=== PATIENT | male | born 1965 | race Caucasian/White ===

== ENCOUNTER 2021-01-03 12:49 | Inpatient (IN) | payer MEDICAID ==
[~2021-01-03] VITALS: Ht 182.9 cm; Wt 98.6 kg
[2021-01-04] VITALS (35 sets, daily range): BP systolic 82–125; BP diastolic 51–76
[2021-01-04] MEDS ORDERED: midazolam 1 mg/ML 2ml injection ONE (03:05)
[2021-01-04] MEDS ORDERED: acetaminophen 325mg tablet PO PRN ×4 (03:35→12:40)
[2021-01-04] MEDS ORDERED: potassium Cl 20 mEq SR tablet PO PRN ×4 (03:35→12:40)
[2021-01-04] MEDS ORDERED: LIDOcaine 2% 10ml TOPICAL JELLY (Urojet) TP ONE ×2 (03:35→12:40)
[2021-01-04] MEDS ORDERED: magnesium hydroxide 30ml (MOM) UD suspension PO PRN (03:35)
[2021-01-04] MEDS ORDERED: midazolam 1 mg/ML 2ml injection IV ONE ×3 (03:37→12:40)
[2021-01-04] MEDS ORDERED: NORepinephrine 8mg/ 250ml NS 250 ML IV ONE ×2 (03:40→13:32)
[2021-01-04] MEDS ORDERED: propofol 1000mg/100ml bottle 100 ML IV ONE (03:41)
[2021-01-04] MEDS ORDERED: CISatracurium besylate inj. 100 MG in normal saline 100ml IV soln 90 ML IV PRN (04:00)
[2021-01-04 04:26] LABS: ABG BASE EXCESS -7.6 mmol/L (-2.0-2.0); ABG HCO3 18.3 mmol/L (22.0-26.0); ABG OXYGEN SATURATION 99.1 % (94-97); ABG PCO2 (T) 38.8 mmHg (35.0-48.0); ABG PO2 (T) 195.4 mmHg (75.0-100.0); ALLEN'S TEST POSITIVE; FCOHb 0.1 % (0.0-3.9); FMetHb 0.2 % (0.0-1.5); FO2Hb 98.8 % (94-97); PEEP 10 cm H2O; RESPIRATORY RATE 26 b/min; TIDAL VOLUME 400 mL; TOTAL HEMOGLOBIN 13.8 G/dl (14.0-18.0)
[2021-01-04] MEDS: K, MAG and/or Phos replacement - Verify level? MC SCH ×2 (05:00→08:00)
[2021-01-04] MEDS: NORepinephrine 8mg/ 250ml NS 250 ML IV PRN ×2 (05:01→08:28)
[2021-01-04] MEDS: dexmedetomidin/NS 400mcg/100ml 100 ML IV SCH ×2 (05:02→15:02)
[2021-01-04] MEDS ORDERED: propofol 1000mg/100ml bottle 100 ML IV SCH (05:35)
--- NOTE | 2021-01-04 06:25 | NUR ---
[id number]: Patient here from [facility], accompanied by transport crew to room 2007. Patient tachypneic, agitated, face dusky. Versed bolus x2 given for sedation and ventilator synchrony. Dr. Mohamud here to see patient via telemed viewer, orders placed by MD. Titrating sedation for ventilator synchrony. Titrating pressors to maintain MAP greater than 65. Dodson catheter and OG tube placed. 0625: Problems reprioritized. Patient report given, questions answered & plan of care reviewed with Haylee YOST.
--- NOTE | 2021-01-04 06:30 | NUR ---
Patient in room CICU 2008. I have received report from Raven YOST and had the opportunity to ask questions and assume patient care.
--- NOTE | 2021-01-04 07:00 | NUR ---
Patients R ij central line is pulled out, patient was transferred to our hospital like this, Picc nurse on the unit called DR. Blum to get consent for an emergent picc line as patient has high dose Levophed running. Emergent Picc consent obtained
[2021-01-04] MEDS ORDERED: dexamethasone inj 6 MG in dextrose 5%-water 100 ML IV SCH (08:00)
[2021-01-04] MEDS ORDERED: famotidine 20mg tablet PO SCH (08:00)
[2021-01-04] MEDS ORDERED: enoxaparin 40mg/0.4ml syringe SUBCUT SCH (08:00)
[2021-01-04] MEDS: dexamethasone 4mg/ml inj IV SCH ×2 (08:27→20:58)
[2021-01-04] MEDS: FENTANYL-0.9 % NACL/PF 100 ML IV PRN ×4 (08:29→21:06)
[2021-01-04 08:32] LABS: BASOPHILS % (AUTO) 0.1 % (0-1); EOSINOPHILS % (AUTO) 0.1 % (0-6); HEMATOCRIT 44.8 % (42.0-52.0); HEMOGLOBIN 14.3 g/dl (14.0-17.9); LYMPHOCYTES # (AUTO) 0.8 X10'3 (1.1-4.8); LYMPHOCYTES % (AUTO) 4.5 % (21-51); MEAN CORPUSCULAR HEMOGLOBIN 29.1 PG (27.0-31.0); MEAN PLATELET VOLUME 7.3 FL (7.4-10.4); MONOCYTES % (AUTO) 5.5 % (2-12); NEUTROPHILS # (AUTO) 16.8 X10'3 (1.8-7.7); NEUTROPHILS % (AUTO) 89.8 % (42-75); PLATELET COUNT 268 X10'3 (140-440); RED BLOOD COUNT 4.92 X10'6 (4.70-6.10); RED CELL DISTRIBUTION WIDTH 16.9 % (11.5-14.5); WHITE BLOOD COUNT 18.7 X10'3 (4.5-11.0)
[2021-01-04 08:48] LABS: PARTIAL THROMBOPLASTIN TIME 28 SECONDS (22-32)
[2021-01-04 08:53] LABS: ALBUMIN 1.8 G/DL (3.4-5.0); ALBUMIN/GLOBULIN RATIO 0.4 (1.1-1.5); ALKALINE PHOSPHATASE 69 IU/L (46-116); ANION GAP 14 (8-16); BILIRUBIN,TOTAL 1.3 MG/DL (0.1-1.0); BLOOD UREA NITROGEN 29 MG/DL (7-18); BUN/CREATININE RATIO 14.2 (5.4-32.0); C-REACTIVE PROTEIN 21.67 MG/DL (0.0-0.5); CALCIUM 7.4 MG/DL (8.5-10.1); CHLORIDE 107 MMOL/L (99-107); CREATININE 2.04 MG/DL (0.60-1.10); GLUCOSE 145 MG/DL (70-104); MAGNESIUM 2.8 MG/DL (1.5-2.4); PHOSPHORUS 7.6 MG/DL (2.3-4.5); SODIUM 142 MMOL/L (135-145); TOTAL CARBON DIOXIDE 20.9 MMOL/L (24-32); TOTAL PROTEIN 6.3 G/DL (6.4-8.2); eGFR 34 ML/MIN
[2021-01-04 08:55] LABS: ALANINE AMINOTRANSFERASE 2312 U/L (12-78)
[2021-01-04 09:02] LABS: D-DIMER > 35.20 MG/L FEU (0-0.50)
[2021-01-04 09:14] LABS: ASPARTATE AMINO TRANSFERASE 3391 U/L (10-37)
[2021-01-04 09:49] LABS: ANISOCYTOSIS 1+; PLATELET ESTIMATE NORMAL; TOTAL CELLS COUNTED 100
[2021-01-04] MEDS: normal saline 1000ml 1,000 ML IV SCH ×3 (12:06→18:45)
[2021-01-04] MEDS ORDERED: BARICITINIB 2 MG TABLET PO SCH ×3 (12:07→15:05)
--- NOTE | 2021-01-04 12:14 | NUR ---
Initial: Pt admit for COVID-19 ARDS. Limited information at this time given new admit. Pt documented with an OG tube in place though no TF consult at this time. Current documented wt isn't scaled however unknown BMI at this time given no documented ht. Recommend TF to meet estimated nutrient needs if expected prolonged intubation, will need to know patient's height in order to make appropriate TF recommendations. Attempted TC to RN however RN unavailable. Will continue to follow closely and make recommendations as appropriate. Recommendations: 1) Initiate nutrition support if expected prolonged intubation, will need height; monitor Propofol rate when making recommendations 2) IF TF, additional 200 mL water flush Q4H 3) IF TF, prealbumin q Sunday/; daily scaled weights 4) Routine bowel care Addendum: 01/04/21 at [address] Amended: Links added.
[2021-01-04] MEDS: midazolam 100mg in NS 100ml 100 ML IV PRN ×2 (12:33→21:05)
[2021-01-04] MEDS ORDERED: azithromycin/NS 500mg/250ml 250 ML IV SCH ×2 (12:40→15:06)
[2021-01-04] MEDS ORDERED: ipratropium/albuterol 3ml nebule NEB PRN (12:40)
[2021-01-04] MEDS ORDERED: CefTRIAXone/D5W-Rocephin 1gm 50 ML IV SCH ×2 (12:40→15:07)
[2021-01-04] MEDS ORDERED: ondansetron/PF 4mg/2ml inj IV PRN (12:40)
[2021-01-04] MEDS ORDERED: potassium Cl 40MEQ/1/2NS 520ml 520 ML IV PRN ×2 (12:40)
[2021-01-04] MEDS ORDERED: potassium Cl 40MEQ/250ML bag 270 ML IV PRN ×2 (12:40)
[2021-01-04] MEDS ORDERED: fentaNYL/PF 50MCG/1 ML 2ML syringe IV PRN (12:40)
[2021-01-04] MEDS ORDERED: midazolam 100mg in NS 100ml 100 ML IV PRN (12:40)
[2021-01-04] MEDS ORDERED: UNABLE TO OBTAIN PO (12:41)
[2021-01-04] MEDS ORDERED: REMDESIVIR 100 MG in NS 100ml IVPB IV SCH (15:06)
[2021-01-04] MEDS: REMDESIVIR 100 MG in NS 100ml IVPB IV SCH (15:40)
[2021-01-04] MEDS: NORepinephrine inj. 32 MG in normal saline 250ml IV soln 218 ML IV SCH (15:41)
[2021-01-04] MEDS: ipratropium/albuterol 3ml nebule NEB SCH ×3 (15:54→23:36)
[2021-01-04] MEDS: BARICITINIB 2 MG TABLET PO SCH (16:18)
--- NOTE | 2021-01-04 17:41 | NUR ---
Patients niece called to verify that the patient does not have any home medication that she was able to find upon inspecting his house, she did state that he has a history of colitis and ulcers for which he has not seen a doctor in a long time for
--- NOTE | 2021-01-04 18:30 | NUR ---
Patient in room CICU 2007. I have received report from Haylee YOST and had the opportunity to ask questions and assume patient care.
--- NOTE | 2021-01-04 18:33 | NUR ---
Problems reprioritized. Patient report given, questions answered & plan of care reviewed with Jennifer YOST.
[2021-01-04] MEDS ORDERED: docusate sod 100mg capsule PO SCH (20:00)
[2021-01-04] MEDS: famotidine/PF 10 mg/ml inj IV SCH (20:58)
[2021-01-04] MEDS: sennosides/docusate sodium tablet PO SCH (20:59)
[2021-01-05] VITALS (43 sets, daily range): BP systolic 100–122; BP diastolic 58–73
[2021-01-05] MEDS: normal saline 1000ml 1,000 ML IV SCH ×4 (02:00→15:20)
[2021-01-05] MEDS: dexmedetomidin/NS 400mcg/100ml 100 ML IV SCH ×2 (02:07→13:16)
[2021-01-05] MEDS: ipratropium/albuterol 3ml nebule NEB SCH ×6 (02:44→23:21)
[2021-01-05 03:22] LABS: BASOPHILS % (AUTO) 0.1 % (0-1); EOSINOPHILS % (AUTO) 0.1 % (0-6); HEMOGLOBIN 12.1 g/dl (14.0-17.9); LYMPHOCYTES # (AUTO) 0.7 X10'3 (1.1-4.8); LYMPHOCYTES % (AUTO) 3.9 % (21-51); MEAN CORPUSCULAR HEMOGLOBIN 29.1 PG (27.0-31.0); MEAN CORPUSCULAR HGB CONC 32.7 g/dL (33.0-36.5); MEAN CORPUSCULAR VOLUME 89.1 FL (78-98); MEAN PLATELET VOLUME 7.9 FL (7.4-10.4); MONOCYTES # (AUTO) 0.8 X10'3 (0-0.9); MONOCYTES % (AUTO) 4.4 % (2-12); NEUTROPHILS # (AUTO) 17.6 X10'3 (1.8-7.7); NEUTROPHILS % (AUTO) 91.5 % (42-75); PLATELET COUNT 284 X10'3 (140-440); RED BLOOD COUNT 4.15 X10'6 (4.70-6.10); RED CELL DISTRIBUTION WIDTH 16.5 % (11.5-14.5); WHITE BLOOD COUNT 19.2 X10'3 (4.5-11.0)
[2021-01-05 03:44] LABS: D-DIMER 17.44 MG/L FEU (0-0.50)
[2021-01-05 03:47] LABS: ALBUMIN 1.6 G/DL (3.4-5.0); ALBUMIN/GLOBULIN RATIO 0.4 (1.1-1.5); ALKALINE PHOSPHATASE 86 IU/L (46-116); ANION GAP 16 (8-16); BLOOD UREA NITROGEN 50 MG/DL (7-18); BUN/CREATININE RATIO 16.8 (5.4-32.0); CALCIUM 6.6 MG/DL (8.5-10.1); CHLORIDE 109 MMOL/L (99-107); CREATININE 2.97 MG/DL (0.60-1.10); GLUCOSE 160 MG/DL (70-104); MAGNESIUM 2.7 MG/DL (1.5-2.4); PHOSPHORUS 6.5 MG/DL (2.3-4.5); POTASSIUM 5.4 MMOL/L (3.5-5.1); SODIUM 143 MMOL/L (135-145); TOTAL CARBON DIOXIDE 18.2 MMOL/L (24-32); TOTAL PROTEIN 5.5 G/DL (6.4-8.2); TRIGLYCERIDES 129 MG/DL (20-135); eGFR 22 ML/MIN
[2021-01-05 03:52] LABS: ALANINE AMINOTRANSFERASE 2135 U/L (12-78); C-REACTIVE PROTEIN 26.72 MG/DL (0.0-0.5)
[2021-01-05 03:53] LABS: ABG HCO3 15.6 mmol/L (22.0-26.0); ABG OXYGEN SATURATION 96.9 % (94-97); ABG PO2 (T) 111.2 mmHg (75.0-100.0); ALLEN'S TEST POSITIVE; FCOHb 0.3 % (0.0-3.9); FMetHb 0.3 % (0.0-1.5); FO2Hb 96.3 % (94-97); PEEP 10 cm H2O; RESPIRATORY RATE 26 b/min; TIDAL VOLUME 400 mL; TOTAL HEMOGLOBIN 12.8 G/dl (14.0-18.0)
[2021-01-05 04:13] LABS: ASPARTATE AMINO TRANSFERASE 2205 U/L (10-37)
--- NOTE | 2021-01-05 06:19 | NUR ---
Problems reprioritized. Patient report given, questions answered & plan of care reviewed with Shyanne YOST.
--- NOTE | 2021-01-05 06:30 | NUR ---
Patient in room CICU 2008. I have received report from travis and had the opportunity to ask questions and assume patient care.
[2021-01-05] MEDS: BARICITINIB 2 MG TABLET PO SCH (08:00)
[2021-01-05] MEDS: FENTANYL-0.9 % NACL/PF 100 ML IV PRN ×3 (09:09→21:48)
[2021-01-05] MEDS: midazolam 100mg in NS 100ml 100 ML IV PRN ×2 (09:10→21:48)
[2021-01-05] MEDS: enoxaparin 40mg/0.4ml syringe SUBCUT SCH (09:11)
[2021-01-05] MEDS: famotidine/PF 10 mg/ml inj IV SCH ×2 (09:12→21:47)
[2021-01-05] MEDS: dexamethasone 4mg/ml inj IV SCH ×2 (09:12→21:47)
[2021-01-05] MEDS: docusate sodium 100mg/10ml UD cup PO SCH ×2 (09:12→20:00)
[2021-01-05] MEDS ORDERED: glucagon, human recombinant 1mg kit SUBCUT PRN (09:40)
[2021-01-05] MEDS ORDERED: dextrose ORAL solution 15 GM/59 ML bottle PO PRN ×2 (09:40)
[2021-01-05] MEDS ORDERED: dextrose 50%-water 50ml dispensing syringe IV PRN ×2 (09:40)
[2021-01-05] MEDS: REMDESIVIR 100 MG in NS 100ml IVPB IV SCH (09:54)
[2021-01-05 10:25] LABS: TOTAL PROTEIN,URINE RANDOM 122.5 MG/DL
[2021-01-05 10:33] LABS: CLARITY,URINE TURBID (Clear); COLOR,URINE YELLOW (Yellow); GLUCOSE, URINE NEGATIVE (Neg); KETONES,URINE NEGATIVE (Neg); PROTEIN,URINE 30 mg/dl (Neg); UA COLLECTION TYPE FOLEY CATH
[2021-01-05 10:34] LABS: LEUKOCYTE ESTERASE ,URINE NEGATIVE (Neg); NITRITES, URINE NEGATIVE (Neg); OCCULT BLOOD,URINE LARGE (Neg); UROBILINOGEN,URINE 0.2 E.U/dL (0.2-1.0)
[2021-01-05 10:41] LABS: HEMOGLOBIN A1C 6.4 % (4.5-6.2)
[2021-01-05 10:50] LABS: BACTERIA,URINE FEW /HPF (Neg); RBC,URINE 0-2 /HPF (0-2); SQUAMOUS EPITHELIAL CELL,UR FEW /LPF (FEW); WBC,URINE 0-4 /HPF (0-4)
[2021-01-05 10:51] LABS: HYALINE CASTS 0-3 /LPF (NEGATIVE)
[2021-01-05 10:52] LABS: AMORPHOUS URATES 2+
[2021-01-05] MEDS: insulin Lispro (HumaLOG) vial - multi-dose SQ SCH ×2 (11:16→15:52)
[2021-01-05 12:13] LABS: UA EOSINOPHILS NO EOS /HPF
--- NOTE | 2021-01-05 13:49 | NUR ---
TF consult: Pt remains intubated and no longer receiving Propofol per EMR, to begin TF per MD. Patient's height was obtained and put in EMR, see below for estimated nutrient needs and TF recommendations. Noted pt with a low Jose D of 12, no edema or wounds per physical assessment. Will continue to follow closely and make recommendations as appropriate. Recommendations: 1) Continuous TF via OGT using Vital High Protein with 80 mL/hr goal to provide 1920 mL total volume/day, 1920 kcal, 168 g protein, and 1605 mL water; adjust as appropriate if Propofol is resumes 2) Additional 200 mL water flush Q4H; monitor serum Na 3) Prealbumin q Sunday/ 4) Daily scaled weights 5) Routine bowel care Addendum: 01/05/21 at [address] Amended: Links added.
[2021-01-05] MEDS: mineral oil/petrolatum ophthal oint EACHEYE SCH ×2 (14:00→20:00)
--- NOTE | 2021-01-05 14:00 | NUR ---
to ct and back to check chest. pt quite sedated, little response. on fent and versed. able to decrease levophed
[2021-01-05] MEDS: CefTRIAXone 2gm/D5W 50ml BAG 50 ML IV SCH (16:02)
--- NOTE | 2021-01-05 16:02 | NUR ---
Wound Care called and spoke to primary RN about low mony score alert. Per primary RN, patient's skin is intact and no skin concerns at this time.
[2021-01-05] MEDS: NORepinephrine inj. 32 MG in normal saline 250ml IV soln 218 ML IV SCH (16:04)
--- NOTE | 2021-01-05 17:14 | NUR ---
tf started as per orders. able to titrate down fio2 to 40%
[2021-01-05] MEDS: lactobacillus rhamnosus 10,000 MMU CELLS/CAPSULE PO SCH (21:46)
[2021-01-05] MEDS: sennosides/docusate sodium tablet PO SCH (21:46)
[2021-01-05] MEDS: insulin glargine (Lantus) pen - multi-dose SQ SCH (22:44)
[2021-01-06] VITALS (36 sets, daily range): BP systolic 101–122; BP diastolic 55–75
[2021-01-06] MEDS: dexmedetomidin/NS 400mcg/100ml 100 ML IV SCH ×3 (00:23→22:37)
[2021-01-06] MEDS: mineral oil/petrolatum ophthal oint EACHEYE SCH ×4 (02:00→20:00)
[2021-01-06] MEDS: ipratropium/albuterol 3ml nebule NEB SCH ×6 (02:49→23:00)
[2021-01-06 03:03] LABS: ABG BASE EXCESS -9.6 mmol/L (-2.0-2.0); ABG HCO3 17.8 mmol/L (22.0-26.0); ABG PCO2 (T) 46.1 mmHg (35.0-48.0); ABG PO2 (T) 77.9 mmHg (75.0-100.0); ALLEN'S TEST POSITIVE; FCOHb 0.3 % (0.0-3.9); FMetHb 0.2 % (0.0-1.5); FO2Hb 91.5 % (94-97); PATIENT TEMPERATURE 37.7; PEEP 10 cm H2O; RESPIRATORY RATE 26 b/min; TIDAL VOLUME 400 mL; TOTAL HEMOGLOBIN 12.5 G/dl (14.0-18.0)
[2021-01-06 03:33] LABS: BASOPHILS % (AUTO) 0.1 % (0-1); EOSINOPHILS # (AUTO) 0.1 X10'3 (0-0.9); EOSINOPHILS % (AUTO) 0.3 % (0-6); HEMATOCRIT 34.3 % (42.0-52.0); LYMPHOCYTES # (AUTO) 0.6 X10'3 (1.1-4.8); LYMPHOCYTES % (AUTO) 3.2 % (21-51); MEAN CORPUSCULAR HEMOGLOBIN 28.7 PG (27.0-31.0); MEAN CORPUSCULAR HGB CONC 32.1 g/dL (33.0-36.5); MEAN CORPUSCULAR VOLUME 89.4 FL (78-98); MEAN PLATELET VOLUME 7.5 FL (7.4-10.4); MONOCYTES # (AUTO) 0.8 X10'3 (0-0.9); MONOCYTES % (AUTO) 3.9 % (2-12); NEUTROPHILS # (AUTO) 18.5 X10'3 (1.8-7.7); NEUTROPHILS % (AUTO) 92.5 % (42-75); PLATELET COUNT 284 X10'3 (140-440); RED BLOOD COUNT 3.84 X10'6 (4.70-6.10); RED CELL DISTRIBUTION WIDTH 16.9 % (11.5-14.5)
[2021-01-06 03:57] LABS: ALBUMIN 1.6 G/DL (3.4-5.0); ALBUMIN/GLOBULIN RATIO 0.4 (1.1-1.5); ALKALINE PHOSPHATASE 133 IU/L (46-116); ANION GAP 13 (8-16); ASPARTATE AMINO TRANSFERASE 628 U/L (10-37); BILIRUBIN,TOTAL 1.2 MG/DL (0.1-1.0); BLOOD UREA NITROGEN 82 MG/DL (7-18); BUN/CREATININE RATIO 20.6 (5.4-32.0); C-REACTIVE PROTEIN 21.72 MG/DL (0.0-0.5); CALCIUM 7.2 MG/DL (8.5-10.1); CHLORIDE 112 MMOL/L (99-107); CREATININE 3.99 MG/DL (0.60-1.10); GLUCOSE 211 MG/DL (70-104); MAGNESIUM 3.3 MG/DL (1.5-2.4); PHOSPHORUS 6.1 MG/DL (2.3-4.5); POTASSIUM 5.4 MMOL/L (3.5-5.1); PREALBUMIN 11.1 MG/DL (19-36); SODIUM 145 MMOL/L (135-145); TOTAL CARBON DIOXIDE 20.4 MMOL/L (24-32); TOTAL PROTEIN 5.6 G/DL (6.4-8.2); eGFR 16 ML/MIN
[2021-01-06 03:58] LABS: ALANINE AMINOTRANSFERASE 1545 U/L (12-78)
[2021-01-06] MEDS: insulin regular, human U-100 3ml vial - multi-dose SQ SCH ×4 (04:35→21:28)
[2021-01-06] MEDS: normal saline 1000ml 1,000 ML IV SCH ×2 (04:36→08:16)
[2021-01-06 04:38] LABS: TOTAL CELLS COUNTED 100
[2021-01-06 04:39] LABS: ANISOCYTOSIS 1+; PLATELET ESTIMATE NORMAL
[2021-01-06 04:40] LABS: BURR CELLS FEW
[2021-01-06] MEDS: FENTANYL-0.9 % NACL/PF 100 ML IV PRN ×3 (05:56→21:17)
--- NOTE | 2021-01-06 06:30 | NUR ---
Patient in room CICU 2008. I have received report from leif and had the opportunity to ask questions and assume patient care.
[2021-01-06] MEDS: famotidine/PF 10 mg/ml inj IV SCH ×2 (08:16→21:15)
[2021-01-06] MEDS: dexamethasone 4mg/ml inj IV SCH ×2 (08:16→21:17)
[2021-01-06] MEDS: lactobacillus rhamnosus 10,000 MMU CELLS/CAPSULE PO SCH ×2 (08:17→21:16)
[2021-01-06] MEDS: enoxaparin 40mg/0.4ml syringe SUBCUT SCH (08:18)
[2021-01-06] MEDS: docusate sodium 100mg/10ml UD cup PO SCH ×2 (08:46→20:00)
[2021-01-06] MEDS: BARICITINIB 2 MG TABLET PO SCH (08:46)
--- NOTE | 2021-01-06 10:00 | NUR ---
versed off since 299, fentanyl decreased and now down to 50mcg/ pt still doesnt respond . vss, sats adequate at 40%- peep turned down to 8 by md. aware of pts neuro status.
[2021-01-06] MEDS: CefTRIAXone 2gm/D5W 50ml BAG 50 ML IV SCH (12:50)
--- NOTE | 2021-01-06 14:10 | NUR ---
F/u 01/06: Due to national shortage of Vital AF and Vital High Protein, if substitution necessary, recommend Pivot 1.5, see recs below for if substitution. Unable to meet protein needs given high kcal formula Recommendations: 1) Continuous TF via OGT using Vital High Protein with 80 mL/hr goal to provide 1920 mL total volume/day, 1920 kcal, 168 g protein, and 1605 mL water; adjust as appropriate if Propofol is resumes 2) Additional 200 mL water flush Q4H; monitor serum Na 3) IF out of Vital High Protein sub Pivot 1.5 at 55ml/hr providing 1320ml volume, 1980kcals, 123g protein, 1003ml free water. Additional 200ml water flush Q4H 4) Prealbumin q Sunday/ 5) Daily scaled weights 6) Routine bowel care Addendum: 01/06/21 at [address] Amended: Links added.
[2021-01-06] MEDS: sennosides/docusate sodium tablet PO SCH (21:15)
[2021-01-06] MEDS: insulin glargine (Lantus) pen - multi-dose SQ SCH (21:24)
[2021-01-07] VITALS (25 sets, daily range): BP systolic 104–151; BP diastolic 56–81
[2021-01-07] MEDS: mineral oil/petrolatum ophthal oint EACHEYE SCH ×4 (01:42→20:00)
[2021-01-07] MEDS ORDERED: furosemide 20 MG/2 ML vial IV ONE (01:50)
[2021-01-07] MEDS: ipratropium/albuterol 3ml nebule NEB SCH ×6 (02:48→22:52)
[2021-01-07 03:03] LABS: ABG BASE EXCESS -8.2 mmol/L (-2.0-2.0); ABG HCO3 16.5 mmol/L (22.0-26.0); ABG OXYGEN SATURATION 92.6 % (94-97); ABG PCO2 (T) 32.2 mmHg (35.0-48.0); ABG PO2 (T) 72.3 mmHg (75.0-100.0); ALLEN'S TEST POSITIVE; FCOHb 0.3 % (0.0-3.9); FMetHb 0.2 % (0.0-1.5); FO2Hb 92.1 % (94-97); PATIENT TEMPERATURE 37.5; PEEP 8 cm H2O; RESPIRATORY RATE 26 b/min; TIDAL VOLUME 400 mL; TOTAL HEMOGLOBIN 11.8 G/dl (14.0-18.0)
[2021-01-07] MEDS: insulin regular, human U-100 3ml vial - multi-dose SQ SCH ×4 (03:24→21:59)
[2021-01-07 03:56] LABS: BASOPHILS % (AUTO) 0.2 % (0-1); EOSINOPHILS % (AUTO) 0 % (0-6); HEMATOCRIT 33.5 % (42.0-52.0); LYMPHOCYTES # (AUTO) 0.4 X10'3 (1.1-4.8); LYMPHOCYTES % (AUTO) 1.7 % (21-51); MEAN CORPUSCULAR HEMOGLOBIN 29.2 PG (27.0-31.0); MEAN CORPUSCULAR HGB CONC 32.8 g/dL (33.0-36.5); MEAN PLATELET VOLUME 7.8 FL (7.4-10.4); MONOCYTES # (AUTO) 1.1 X10'3 (0-0.9); NEUTROPHILS # (AUTO) 20.1 X10'3 (1.8-7.7); NEUTROPHILS % (AUTO) 93.1 % (42-75); PLATELET COUNT 267 X10'3 (140-440); RED BLOOD COUNT 3.77 X10'6 (4.70-6.10); RED CELL DISTRIBUTION WIDTH 16.7 % (11.5-14.5); WHITE BLOOD COUNT 21.6 X10'3 (4.5-11.0)
[2021-01-07 04:09] LABS: D-DIMER 22.44 MG/L FEU (0-0.50)
[2021-01-07 04:10] LABS: ALBUMIN 1.6 G/DL (3.4-5.0); ALBUMIN/GLOBULIN RATIO 0.4 (1.1-1.5); ALKALINE PHOSPHATASE 91 IU/L (46-116); ANION GAP 13 (8-16); ASPARTATE AMINO TRANSFERASE 225 U/L (10-37); BLOOD UREA NITROGEN 109 MG/DL (7-18); BUN/CREATININE RATIO 26.8 (5.4-32.0); C-REACTIVE PROTEIN 11.63 MG/DL (0.0-0.5); CALCIUM 7.5 MG/DL (8.5-10.1); CHLORIDE 116 MMOL/L (99-107); CREATININE 4.07 MG/DL (0.60-1.10); GLUCOSE 158 MG/DL (70-104); MAGNESIUM 3.3 MG/DL (1.5-2.4); PHOSPHORUS 4.8 MG/DL (2.3-4.5); POTASSIUM 4.8 MMOL/L (3.5-5.1); SODIUM 148 MMOL/L (135-145); TOTAL CARBON DIOXIDE 19.4 MMOL/L (24-32); TOTAL PROTEIN 5.7 G/DL (6.4-8.2); eGFR 15 ML/MIN
[2021-01-07 04:11] LABS: ALANINE AMINOTRANSFERASE 1134 U/L (12-78)
--- NOTE | 2021-01-07 06:30 | NUR ---
Patient in room CICU 2008. I have received report from leif and had the opportunity to ask questions and assume patient care.
[2021-01-07] MEDS: BARICITINIB 2 MG TABLET PO SCH (08:19)
[2021-01-07] MEDS: lactobacillus rhamnosus 10,000 MMU CELLS/CAPSULE PO SCH ×2 (08:19→21:13)
[2021-01-07] MEDS: dexamethasone 4mg/ml inj IV SCH ×2 (08:20→21:14)
[2021-01-07] MEDS: famotidine/PF 10 mg/ml inj IV SCH ×2 (08:20→21:14)
[2021-01-07] MEDS: docusate sodium 100mg/10ml UD cup PO SCH ×2 (08:21→21:13)
[2021-01-07] MEDS: enoxaparin 40mg/0.4ml syringe SUBCUT SCH (08:23)
[2021-01-07] MEDS: midazolam 100mg in NS 100ml 100 ML IV PRN ×2 (08:24→21:13)
[2021-01-07] MEDS: FENTANYL-0.9 % NACL/PF 100 ML IV PRN ×3 (08:24→21:12)
[2021-01-07] MEDS: dexmedetomidin/NS 400mcg/100ml 100 ML IV SCH ×2 (09:44→20:51)
--- NOTE | 2021-01-07 10:00 | NUR ---
dr steele updated re pts fio2 status, neuro status and minimal uo of 15cc thus far. doesnt want anymore sedation vacations at this time. fc flushed with 10ccns- returned well. pt doesnt respond, rr to 32, fentanyl and versed boluses given- abd breathing.
[2021-01-07] MEDS ORDERED: bisacodyl 10mg suppository rectal RC STA (11:01)
[2021-01-07] MEDS ORDERED: bisacodyl 10mg suppository rectal RC PRN (11:05)
[2021-01-07] MEDS ORDERED: lactulose 20gm/30ml cup PO PRN (11:05)
[2021-01-07] MEDS ORDERED: methylnaltrexone br 12mg/0.6ml inj***SubQ only SQ PRN (11:05)
[2021-01-07] MEDS: CefTRIAXone 2gm/D5W 50ml BAG 50 ML IV SCH (13:13)
--- NOTE | 2021-01-07 15:00 | NUR ---
discussed bm status with photogrammetric surveyor- last bm on 01/03- dulcolax supp given as ordered, no results. large hemorrhoids noted- bleeding at times.attempted to flush fc again-not flushing. cath irrigation used without results- cath occluded- fc dcd- replaced without difficulty- incont of urine right after fc dcd- then 1200 cc yellow. then red urine. end of one port of picc line caught in bed on turn- flushed, clamped and attempt at covering. no response from picc nurse.
[2021-01-07] MEDS: heparin, porcine 5000 units/ml vial SQ SCH (17:14)
--- NOTE | 2021-01-07 18:02 | NUR ---
able to decrease fio2 to 40%. ns dcd today for na of 148.
[2021-01-07] MEDS: sennosides/docusate sodium tablet PO SCH (21:11)
[2021-01-07] MEDS: insulin glargine (Lantus) pen - multi-dose SQ SCH (21:56)
[2021-01-08] VITALS (24 sets, daily range): BP systolic 108–150; BP diastolic 57–78
[2021-01-08] MEDS: heparin, porcine 5000 units/ml vial SQ SCH ×3 (00:01→09:20)
[2021-01-08] MEDS: mineral oil/petrolatum ophthal oint EACHEYE SCH ×4 (00:47→19:54)
[2021-01-08] MEDS: ipratropium/albuterol 3ml nebule NEB SCH ×5 (02:28→23:30)
[2021-01-08 02:43] LABS: ABG BASE EXCESS -10.4 mmol/L (-2.0-2.0); ABG HCO3 15.6 mmol/L (22.0-26.0); ABG OXYGEN SATURATION 94.9 % (94-97); ABG PCO2 (T) 33.6 mmHg (35.0-48.0); ABG PO2 (T) 83.3 mmHg (75.0-100.0); ALLEN'S TEST POSITIVE; FCOHb 0.3 % (0.0-3.9); FMetHb 0.3 % (0.0-1.5); FO2Hb 94.3 % (94-97); PATIENT TEMPERATURE 36.3; PEEP 8 cm H2O; RESPIRATORY RATE 26 b/min; TIDAL VOLUME 400 mL; TOTAL HEMOGLOBIN 11.6 G/dl (14.0-18.0)
[2021-01-08] MEDS: insulin regular, human U-100 3ml vial - multi-dose SQ SCH ×3 (03:05→21:06)
[2021-01-08 03:06] LABS: ALANINE AMINOTRANSFERASE 726 U/L (12-78); ALBUMIN 1.5 G/DL (3.4-5.0); ALBUMIN/GLOBULIN RATIO 0.4 (1.1-1.5); ALKALINE PHOSPHATASE 77 IU/L (46-116); ANION GAP 14 (8-16); ASPARTATE AMINO TRANSFERASE 94 U/L (10-37); BILIRUBIN,TOTAL 0.8 MG/DL (0.1-1.0); C-REACTIVE PROTEIN 6.53 MG/DL (0.0-0.5); CALCIUM 7.6 MG/DL (8.5-10.1); CHLORIDE 118 MMOL/L (99-107); CREATININE 5.02 MG/DL (0.60-1.10); GLUCOSE 175 MG/DL (70-104); MAGNESIUM 3.6 MG/DL (1.5-2.4); PHOSPHORUS 6.2 MG/DL (2.3-4.5); POTASSIUM 5.2 MMOL/L (3.5-5.1); SODIUM 152 MMOL/L (135-145); TOTAL CARBON DIOXIDE 20.3 MMOL/L (24-32); TOTAL PROTEIN 5.3 G/DL (6.4-8.2); eGFR 12 ML/MIN
[2021-01-08 03:18] LABS: HEMOGLOBIN 10.5 g/dl (14.0-17.9); LYMPHOCYTES # (AUTO) 0.3 X10'3 (1.1-4.8)
[2021-01-08 03:20] LABS: BASOPHILS % (AUTO) 0.1 % (0-1); EOSINOPHILS % (AUTO) 0 % (0-6); HEMATOCRIT 32.1 % (42.0-52.0); LYMPHOCYTES % (AUTO) 1.8 % (21-51); MEAN CORPUSCULAR HGB CONC 32.6 g/dL (33.0-36.5); MEAN CORPUSCULAR VOLUME 88.8 FL (78-98); MEAN PLATELET VOLUME 7.7 FL (7.4-10.4); MONOCYTES # (AUTO) 0.8 X10'3 (0-0.9); MONOCYTES % (AUTO) 5.3 % (2-12); NEUTROPHILS # (AUTO) 14.9 X10'3 (1.8-7.7); NEUTROPHILS % (AUTO) 92.8 % (42-75); PLATELET COUNT 258 X10'3 (140-440); RED BLOOD COUNT 3.61 X10'6 (4.70-6.10); RED CELL DISTRIBUTION WIDTH 16.6 % (11.5-14.5); WHITE BLOOD COUNT 16.1 X10'3 (4.5-11.0)
[2021-01-08 03:39] LABS: BLOOD UREA NITROGEN 151 MG/DL (7-18); BUN/CREATININE RATIO 30.1 (5.4-32.0)
[2021-01-08 07:43] LABS: TOTAL CELLS COUNTED 100
[2021-01-08 07:44] LABS: ANISOCYTOSIS 1+; PLATELET ESTIMATE NORMAL
[2021-01-08 07:47] LABS: BURR CELLS 1+
[2021-01-08] MEDS: lactobacillus rhamnosus 10,000 MMU CELLS/CAPSULE PO SCH ×2 (09:20→19:54)
[2021-01-08] MEDS: docusate sodium 100mg/10ml UD cup PO SCH ×2 (09:20→19:54)
[2021-01-08] MEDS: famotidine/PF 10 mg/ml inj IV SCH ×2 (09:23→19:53)
[2021-01-08] MEDS: dexamethasone 4mg/ml inj IV SCH ×2 (09:23→19:54)
[2021-01-08] MEDS: BARICITINIB 2 MG TABLET PO SCH (09:26)
[2021-01-08] MEDS: BARICITINIB 1 MG TABLET PO SCH (09:26)
--- NOTE | 2021-01-08 09:29 | NUR ---
Reassessment: Pt remains intubated and tolerating TF at goal rate with GRV WNL. Noted serum Na is elevated today at 152 MMOL/L, pt receiving 200 mL water flush Q4H, though also receiving some medications with NS. Will continue to monitor serum Na and need to adjust water flushes. LBM 01/03. Pt receiving routine Colace and Senna-S, additional PRN bowel care added to med list 01/07 and pt received one time dose of Dulcolax suppository 01/07. No changes to nutrition recommendations at this time. Will continue to follow. Recommendations: 1) Continuous TF via OGT using Vital High Protein with 80 mL/hr goal to provide 1920 mL total volume/day, 1920 kcal, 168 g protein, and 1605 mL water; adjust as appropriate if Propofol is resumes 2) Additional 200 mL water flush Q4H; monitor serum Na 3) IF out of Vital High Protein sub Vital AF at 70 mL/hr to provide 1680 mL total volume/day, 2016 kcal, 126 g protein, and 1362 mL water. Will NOT meet estimated protein needs 4) IF out of Vital High Protein AND Vital AF sub Pivot 1.5 at 55 mL/hr to provide 1320 mL total volume/day, 1980 kcal, 124 g protein, 1003 mL water. Will NOT meet estimated protein needs 5) Prealbumin q Sunday/ 6) Daily scaled weights 7) Routine bowel care Addendum: 01/08/21 at [address] Amended: Links added.
[2021-01-08] MEDS: FENTANYL-0.9 % NACL/PF 100 ML IV PRN (10:04)
[2021-01-08] MEDS: midazolam 100mg in NS 100ml 100 ML IV PRN (10:06)
[2021-01-08] MEDS: NORepinephrine inj. 32 MG in normal saline 250ml IV soln 218 ML IV SCH (11:35)
[2021-01-08] MEDS: CefTRIAXone 2gm/D5W 50ml BAG 50 ML IV SCH (12:00)
[2021-01-08] MEDS: dexmedetomidin/NS 400mcg/100ml 100 ML IV SCH (19:05)
[2021-01-08] MEDS: sennosides/docusate sodium tablet PO SCH (20:05)
[2021-01-08] MEDS: insulin glargine (Lantus) pen - multi-dose SQ SCH (21:03)
[2021-01-09] VITALS (23 sets, daily range): BP systolic 122–178; BP diastolic 66–97
[2021-01-09] MEDS: mineral oil/petrolatum ophthal oint EACHEYE SCH ×4 (00:29→20:55)
[2021-01-09] MEDS: heparin, porcine 5000 units/ml vial SQ SCH ×3 (00:40→16:51)
[2021-01-09 02:31] LABS: ALANINE AMINOTRANSFERASE 496 U/L (12-78); ALBUMIN 1.5 G/DL (3.4-5.0); ALBUMIN/GLOBULIN RATIO 0.4 (1.1-1.5); ALKALINE PHOSPHATASE 66 IU/L (46-116); ANION GAP 12 (8-16); ASPARTATE AMINO TRANSFERASE 67 U/L (10-37); BILIRUBIN,TOTAL 0.7 MG/DL (0.1-1.0); BLOOD UREA NITROGEN 148 MG/DL (7-18); BUN/CREATININE RATIO 39.8 (5.4-32.0); C-REACTIVE PROTEIN 3.25 MG/DL (0.0-0.5); CALCIUM 7.4 MG/DL (8.5-10.1); CHLORIDE 122 MMOL/L (99-107); CREATININE 3.72 MG/DL (0.60-1.10); GLUCOSE 168 MG/DL (70-104); MAGNESIUM 3.3 MG/DL (1.5-2.4); PHOSPHORUS 4.7 MG/DL (2.3-4.5); POTASSIUM 5.7 MMOL/L (3.5-5.1); TOTAL CARBON DIOXIDE 21.8 MMOL/L (24-32); TOTAL PROTEIN 4.9 G/DL (6.4-8.2); eGFR 17 ML/MIN
[2021-01-09 02:33] LABS: SODIUM 156 MMOL/L (135-145)
[2021-01-09 02:40] LABS: D-DIMER > 35.20 MG/L FEU (0-0.50)
[2021-01-09] MEDS: insulin regular, human U-100 3ml vial - multi-dose SQ SCH ×3 (02:50→21:11)
[2021-01-09] MEDS: ipratropium/albuterol 3ml nebule NEB SCH ×6 (02:56→22:55)
[2021-01-09 04:11] LABS: LYMPHOCYTES # (AUTO) 0.3 X10'3 (1.1-4.8); MONOCYTES # (AUTO) 1.3 X10'3 (0-0.9); NEUTROPHILS % (AUTO) 93.3 % (42-75)
[2021-01-09 04:13] LABS: BASOPHILS % (AUTO) 0.1 % (0-1); EOSINOPHILS % (AUTO) 0.1 % (0-6); HEMATOCRIT 37.8 % (42.0-52.0); HEMOGLOBIN 12.2 g/dl (14.0-17.9); LYMPHOCYTES % (AUTO) 1.4 % (21-51); MEAN CORPUSCULAR HEMOGLOBIN 28.5 PG (27.0-31.0); MEAN CORPUSCULAR HGB CONC 32.3 g/dL (33.0-36.5); MEAN CORPUSCULAR VOLUME 88.1 FL (78-98); MEAN PLATELET VOLUME 7.7 FL (7.4-10.4); MONOCYTES % (AUTO) 5.1 % (2-12); NEUTROPHILS # (AUTO) 23.2 X10'3 (1.8-7.7); PLATELET COUNT 335 X10'3 (140-440); RED BLOOD COUNT 4.29 X10'6 (4.70-6.10); RED CELL DISTRIBUTION WIDTH 16.1 % (11.5-14.5); WHITE BLOOD COUNT 24.8 X10'3 (4.5-11.0)
[2021-01-09 04:24] LABS: ABG HCO3 18.1 mmol/L (22.0-26.0); ABG OXYGEN SATURATION 96.2 % (94-97); ABG PCO2 (T) 32.4 mmHg (35.0-48.0); ABG PO2 (T) 93.7 mmHg (75.0-100.0); ALLEN'S TEST POSITIVE; FCOHb 0.1 % (0.0-3.9); FMetHb 0.4 % (0.0-1.5); FO2Hb 95.7 % (94-97); PATIENT TEMPERATURE 37.4; PEEP 5 cm H2O; RESPIRATORY RATE 26 b/min; TIDAL VOLUME 400 mL; TOTAL HEMOGLOBIN 13.7 G/dl (14.0-18.0)
[2021-01-09 04:29] LABS: OCCULT BLOOD STOOL POSITIVE (Neg)
[2021-01-09 07:38] LABS: ANISOCYTOSIS 1+; PLATELET ESTIMATE NORMAL; TOTAL CELLS COUNTED 100
[2021-01-09 07:39] LABS: LARGE PLATELETS FEW
[2021-01-09] MEDS: docusate sodium 100mg/10ml UD cup PO SCH ×3 (08:00→20:55)
[2021-01-09] MEDS: lactobacillus rhamnosus 10,000 MMU CELLS/CAPSULE PO SCH ×2 (08:00→20:55)
[2021-01-09] MEDS: BARICITINIB 2 MG TABLET PO SCH (08:00)
[2021-01-09] MEDS: BARICITINIB 1 MG TABLET PO SCH (08:00)
[2021-01-09] MEDS: dexamethasone 4mg/ml inj IV SCH ×2 (08:00→20:54)
[2021-01-09] MEDS: dextrose 5%-water 1,000 ML IV SCH (10:40)
[2021-01-09] MEDS: CefTRIAXone 2gm/D5W 50ml BAG 50 ML IV SCH (12:30)
[2021-01-09] MEDS: dexmedetomidine/D5W 100mL 100 ML IV SCH ×2 (13:30→23:10)
[2021-01-09] MEDS: sennosides/docusate sodium tablet PO SCH ×2 (20:54→20:57)
[2021-01-09] MEDS: famotidine 20mg tablet OGT SCH (20:54)
[2021-01-09] MEDS: insulin glargine (Lantus) pen - multi-dose SQ SCH (21:11)
[2021-01-10] VITALS (24 sets, daily range): BP systolic 101–154; BP diastolic 52–90
[2021-01-10] MEDS: heparin, porcine 5000 units/ml vial SQ SCH ×2 (00:23→08:28)
[2021-01-10] MEDS: mineral oil/petrolatum ophthal oint EACHEYE SCH ×4 (02:16→20:08)
[2021-01-10 02:22] LABS: ABG BASE EXCESS -1.4 mmol/L (-2.0-2.0); ABG HCO3 22.1 mmol/L (22.0-26.0); ABG OXYGEN SATURATION 97.2 % (94-97); ABG PCO2 (T) 34.3 mmHg (35.0-48.0); ABG PO2 (T) 102.1 mmHg (75.0-100.0); ALLEN'S TEST POSITIVE; FCOHb 0.1 % (0.0-3.9); FMetHb 0.3 % (0.0-1.5); FO2Hb 96.8 % (94-97); PATIENT TEMPERATURE 37.4; PEEP 5 cm H2O; RESPIRATORY RATE 26 b/min; TIDAL VOLUME 400 mL; TOTAL HEMOGLOBIN 13.3 G/dl (14.0-18.0)
[2021-01-10] MEDS: insulin regular, human U-100 3ml vial - multi-dose SQ SCH ×4 (02:23→20:19)
[2021-01-10] MEDS: ipratropium/albuterol 3ml nebule NEB SCH ×6 (02:48→22:38)
[2021-01-10 03:10] LABS: HEMATOCRIT 37.7 % (42.0-52.0); HEMOGLOBIN 12.4 g/dl (14.0-17.9); MEAN CORPUSCULAR HGB CONC 32.9 g/dL (33.0-36.5); MEAN CORPUSCULAR VOLUME 88.2 FL (78-98); MEAN PLATELET VOLUME 7.9 FL (7.4-10.4); PLATELET COUNT 338 X10'3 (140-440); RED BLOOD COUNT 4.27 X10'6 (4.70-6.10); WHITE BLOOD COUNT 19.6 X10'3 (4.5-11.0)
[2021-01-10 03:21] LABS: ALANINE AMINOTRANSFERASE 416 U/L (12-78); ALBUMIN 1.9 G/DL (3.4-5.0); ALBUMIN/GLOBULIN RATIO 0.5 (1.1-1.5); ALKALINE PHOSPHATASE 80 IU/L (46-116); ANION GAP 10 (8-16); ASPARTATE AMINO TRANSFERASE 75 U/L (10-37); BILIRUBIN,TOTAL 0.7 MG/DL (0.1-1.0); BLOOD UREA NITROGEN 139 MG/DL (7-18); BUN/CREATININE RATIO 48.9 (5.4-32.0); C-REACTIVE PROTEIN 2.12 MG/DL (0.0-0.5); CALCIUM 8.4 MG/DL (8.5-10.1); CHLORIDE 124 MMOL/L (99-107); CREATININE 2.84 MG/DL (0.60-1.10); GLUCOSE 123 MG/DL (70-104); MAGNESIUM 3.3 MG/DL (1.5-2.4); PHOSPHORUS 5.7 MG/DL (2.3-4.5); TOTAL CARBON DIOXIDE 25.1 MMOL/L (24-32); TOTAL PROTEIN 5.8 G/DL (6.4-8.2); eGFR 23 ML/MIN
[2021-01-10 03:23] LABS: D-DIMER > 35.20 MG/L FEU (0-0.50)
[2021-01-10 03:31] LABS: POTASSIUM 6.5 MMOL/L (3.5-5.1); SODIUM 159 MMOL/L (135-145)
--- NOTE | 2021-01-10 03:35 | NUR ---
Dr Hernandes called to notify about K 6.5 and Na 159. Left a voicemail and awaiting response.
[2021-01-10] MEDS ORDERED: CALCIUM GLUC 1gm/50ml NACL,iso 50 ML IV ONE (04:05)
[2021-01-10] MEDS ORDERED: insulin regular, human 10 units/0.1 ml syringe IV ONE ×2 (04:05→13:30)
[2021-01-10] MEDS ORDERED: dextrose 50%-water 50ml dispensing syringe IV ONE (04:05)
[2021-01-10] MEDS: dexmedetomidine/D5W 100mL 100 ML IV SCH ×5 (04:13→21:30)
[2021-01-10 04:51] LABS: TOTAL CELLS COUNTED 100
[2021-01-10 04:55] LABS: ANISOCYTOSIS 1+; PLATELET ESTIMATE NORMAL
--- NOTE | 2021-01-10 06:30 | NUR ---
Patient in room CICU 2007. I have received report from Darin YOST and had the opportunity to ask questions and assume patient care.
[2021-01-10] MEDS: dextrose 5%-water 1,000 ML IV SCH ×2 (08:26→20:24)
[2021-01-10] MEDS: famotidine 20mg tablet OGT SCH (08:27)
[2021-01-10] MEDS: lactobacillus rhamnosus 10,000 MMU CELLS/CAPSULE PO SCH (08:27)
[2021-01-10] MEDS: docusate sodium 100mg/10ml UD cup PO SCH (08:27)
[2021-01-10] MEDS: BARICITINIB 1 MG TABLET PO SCH (08:34)
[2021-01-10] MEDS: dexamethasone 4mg/ml inj IV SCH (08:37)
[2021-01-10] MEDS ORDERED: PATIROMER CALCIUM SORBITEX 8.4 GM POWD.PACK PO ONE (09:15)
[2021-01-10] MEDS: FENTANYL-0.9 % NACL/PF 100 ML IV PRN ×3 (09:49→21:30)
[2021-01-10] MEDS: acetaminophen 325mg/10.15ml oral unit dose solution PO PRN ×2 (10:28→17:18)
--- NOTE | 2021-01-10 10:39 | NUR ---
Medicated with Tylenol for temp. 38.2.
[2021-01-10] MEDS ORDERED: heparin 10,000 units/1 ML INJ IV ONE (11:10)
[2021-01-10] MEDS: CefTRIAXone 2gm/D5W 50ml BAG 50 ML IV SCH (11:41)
[2021-01-10] MEDS: heparin 25,000 UNIT/250ml bag 250 ML IV SCH ×2 (11:43→23:40)
[2021-01-10] MEDS ORDERED: BARICITINIB 1 MG TABLET PO ONE (11:57)
[2021-01-10] MEDS ORDERED: calcium chloride 100 MG/1 ML inj IV ONE (13:25)
[2021-01-10] MEDS ORDERED: albuterol 2.5 MG/3 ML nebule CONTNEB SCH (13:25)
[2021-01-10] MEDS ORDERED: sodium bicarbonate (8.4%) 1 mEq/ml syringe IV ONE (13:25)
--- NOTE | 2021-01-10 13:26 | NUR ---
K+ 7.0. RN called and notified Dr. Blum. Orders received.
[2021-01-10] MEDS: PATIROMER CALCIUM SORBITEX 8.4 GM POWD.PACK PO SCH (14:16)
--- NOTE | 2021-01-10 15:06 | NUR ---
F/u 01/10: Pt tolerating TF at goal; MARY d/w RN and notified MD of updated TF recs given current national shortage of Vital High Protein. Will monitor for further TF tolerance and adjustment needs. Recommendations: 1) Continuous TF via OGT using Vital High Protein with 80 mL/hr goal to provide 1920 mL total volume/day, 1920 kcal, 168 g protein, and 1605 mL water; adjust as appropriate if Propofol is resumes 2) Additional 200 mL water flush Q4H; monitor serum Na 3) IF out of Vital High Protein sub Vital AF at 70 mL/hr to provide 1680 mL total volume/day, 2016 kcal, 126 g protein, and 1362 mL water. Will NOT meet estimated protein needs 4) Prealbumin q Sunday/; daily scaled weights 5) Routine bowel care Addendum: 01/10/21 at [address] Amended: Links added.
--- NOTE | 2021-01-10 17:17 | NUR ---
Pt. febrile still. Fan provided, medicated with Tylenol again, scd's taken off, cool cloth to forehead.
--- NOTE | 2021-01-10 18:19 | NUR ---
Problems reprioritized. Patient report given, questions answered & plan of care reviewed with Rakesh Hoskins RN. Addendum: 01/10/21 at 1819 by Cara Cornelius RN Amended: Links added.
--- NOTE | 2021-01-10 18:20 | NUR ---
Patient in room CICU 2008. I have received report from NEO and had the opportunity to ask questions and assume patient care.
[2021-01-10] MEDS ORDERED: dexamethasone 4mg/ml inj IV SCH (20:00)
[2021-01-10] MEDS: docusate sodium 100mg/10ml UD cup OGT SCH (20:00)
[2021-01-10] MEDS: dexamethasone inj 5 MG in dextrose 5%-water 100 ML IV SCH (20:07)
[2021-01-10] MEDS: sennosides/docusate sodium tablet PO SCH (20:07)
[2021-01-10] MEDS: famotidine/PF 10 mg/ml inj IV SCH (20:07)
[2021-01-10] MEDS: lactobacillus rhamnosus 10,000 MMU CELLS/CAPSULE OGT SCH (20:08)
[2021-01-10] MEDS: insulin glargine (Lantus) pen - multi-dose SQ SCH (20:13)
[2021-01-11] VITALS (24 sets, daily range): BP systolic 101–136; BP diastolic 55–79
[2021-01-11] MEDS: dexmedetomidine/D5W 100mL 100 ML IV SCH ×7 (00:12→16:37)
[2021-01-11] MEDS: FENTANYL-0.9 % NACL/PF 100 ML IV PRN ×3 (01:40→10:31)
[2021-01-11] MEDS: mineral oil/petrolatum ophthal oint EACHEYE SCH ×4 (01:45→19:45)
[2021-01-11] MEDS: insulin regular, human U-100 3ml vial - multi-dose SQ SCH (02:15)
[2021-01-11] MEDS: ipratropium/albuterol 3ml nebule NEB SCH ×4 (02:34→20:49)
[2021-01-11 02:52] LABS: ABG BASE EXCESS 0.1 mmol/L (-2.0-2.0); ABG HCO3 24.7 mmol/L (22.0-26.0); ABG OXYGEN SATURATION 94.5 % (94-97); ABG PCO2 (T) 41.6 mmHg (35.0-48.0); ALLEN'S TEST POSITIVE; FCOHb 0.6 % (0.0-3.9); FMetHb 0.3 % (0.0-1.5); FO2Hb 93.6 % (94-97); PEEP 5 cm H2O; RESPIRATORY RATE 24 b/min; TIDAL VOLUME 400 mL; TOTAL HEMOGLOBIN 13.6 G/dl (14.0-18.0)
[2021-01-11 03:40] LABS: BASOPHILS % (AUTO) 0.2 % (0-1); EOSINOPHILS % (AUTO) 0 % (0-6); HEMATOCRIT 36.5 % (42.0-52.0); HEMOGLOBIN 11.8 g/dl (14.0-17.9); LYMPHOCYTES # (AUTO) 0.1 X10'3 (1.1-4.8); LYMPHOCYTES % (AUTO) 0.8 % (21-51); MEAN CORPUSCULAR HEMOGLOBIN 28.9 PG (27.0-31.0); MEAN CORPUSCULAR HGB CONC 32.4 g/dL (33.0-36.5); MEAN CORPUSCULAR VOLUME 89.1 FL (78-98); MEAN PLATELET VOLUME 8.4 FL (7.4-10.4); MONOCYTES % (AUTO) 5.7 % (2-12); NEUTROPHILS # (AUTO) 16.9 X10'3 (1.8-7.7); NEUTROPHILS % (AUTO) 93.3 % (42-75); PLATELET COUNT 342 X10'3 (140-440); RED CELL DISTRIBUTION WIDTH 16.1 % (11.5-14.5); WHITE BLOOD COUNT 18.1 X10'3 (4.5-11.0)
[2021-01-11 03:57] LABS: ALANINE AMINOTRANSFERASE 262 U/L (12-78); ALBUMIN 1.7 G/DL (3.4-5.0); ALBUMIN/GLOBULIN RATIO 0.5 (1.1-1.5); ALKALINE PHOSPHATASE 69 IU/L (46-116); ANION GAP 7 (8-16); ASPARTATE AMINO TRANSFERASE 72 U/L (10-37); BILIRUBIN,TOTAL 0.7 MG/DL (0.1-1.0); BLOOD UREA NITROGEN 98 MG/DL (7-18); C-REACTIVE PROTEIN 1.19 MG/DL (0.0-0.5); CALCIUM 8.7 MG/DL (8.5-10.1); CHLORIDE 116 MMOL/L (99-107); GLUCOSE 197 MG/DL (70-104); MAGNESIUM 2.4 MG/DL (1.5-2.4); PHOSPHORUS 5.2 MG/DL (2.3-4.5); POTASSIUM 5.9 MMOL/L (3.5-5.1); SODIUM 150 MMOL/L (135-145); TOTAL PROTEIN 5.3 G/DL (6.4-8.2); eGFR 35 ML/MIN
[2021-01-11 04:05] LABS: D-DIMER > 35.20 MG/L FEU (0-0.50)
--- NOTE | 2021-01-11 06:17 | NUR ---
Problems reprioritized. Patient report given, questions answered & plan of care reviewed with Cara.
--- NOTE | 2021-01-11 06:41 | NUR ---
[facility]. I have received report from Rakesh Hoskins RN and had the opportunity to ask questions and assume patient care. Addendum: 01/11/21 at 0641 by Cara Cornelius RN Amended: Links added.
[2021-01-11] MEDS: famotidine/PF 10 mg/ml inj IV SCH ×2 (07:43→20:49)
[2021-01-11] MEDS: lactobacillus rhamnosus 10,000 MMU CELLS/CAPSULE OGT SCH ×2 (07:43→19:46)
[2021-01-11] MEDS: BARICITINIB 2 MG TABLET PO SCH (07:43)
[2021-01-11] MEDS: docusate sodium 100mg/10ml UD cup OGT SCH ×2 (07:44→19:46)
[2021-01-11] MEDS: dexamethasone inj 5 MG in dextrose 5%-water 100 ML IV SCH (07:44)
[2021-01-11] MEDS ORDERED: PATIROMER CALCIUM SORBITEX 8.4 GM POWD.PACK PO SCH (08:00)
[2021-01-11] MEDS: heparin 25,000 UNIT/250ml bag 250 ML IV SCH (09:00)
--- NOTE | 2021-01-11 09:29 | NUR ---
Pt. more alert and follows commands this am. Tolerating spont. on the vent.
[2021-01-11] MEDS: dextrose 5%-water 1,000 ML IV SCH ×2 (10:12→13:13)
[2021-01-11] MEDS ORDERED: ipratropium/albuterol 3ml nebule NEB PRN (11:00)
[2021-01-11] MEDS ORDERED: racepinephrine 11.25mg/0.5ml nebule NEB PRN (11:00)
[2021-01-11] MEDS: PATIROMER CALCIUM SORBITEX 8.4 GM POWD.PACK PO SCH (11:02)
--- NOTE | 2021-01-11 12:07 | NUR ---
Reassessment: Pt tolerating TF while intubated with GRV WNL however pt just extubated per EMR. PO diet has been advanced to regular and ST has been consulted for BSS. LBM 01/09, receiving routine bowel care. Will continue to follow closely and monitor need for nutrition intervention pending trends in PO intake following BSS with ST. Recommendations: 1) Continue regular diet if pt able to tolerate pending BSS with ST 2) Monitor electrolytes and need for renal diet 3) Monitor need for ONS 4) Routine bowel care 5) Weekly scaled weights Addendum: 01/11/21 at [address] Amended: Links added.
[2021-01-11] MEDS: CefTRIAXone 2gm/D5W 50ml BAG 50 ML IV SCH (12:10)
--- NOTE | 2021-01-11 12:46 | NUR ---
Dolly Hernandez and Domonique both called for updates this shift.
--- NOTE | 2021-01-11 12:54 | NUR ---
Dr. Rodríguez in to see pt.
--- NOTE | 2021-01-11 14:34 | NUR ---
Pt. has been tolerating ice chips post extubation. Pt. coughs with sips of water. BSS ordered.
--- NOTE | 2021-01-11 18:03 | NUR ---
Problems reprioritized. Patient report given, questions answered & plan of care reviewed with NOC RN.
[2021-01-11] MEDS: sennosides/docusate sodium tablet PO SCH (19:46)
[2021-01-11] MEDS: insulin glargine (Lantus) pen - multi-dose SQ SCH (19:46)
[2021-01-11] MEDS ORDERED: vancomycin/NS 1 GM ADD-VANTAGE 250 ML IV SCH (23:00)
[2021-01-12] VITALS (23 sets, daily range): BP systolic 115–199; BP diastolic 58–109
[2021-01-12] MEDS: heparin 25,000 UNIT/250ml bag 250 ML IV SCH ×3 (00:40→22:43)
[2021-01-12] MEDS: mineral oil/petrolatum ophthal oint EACHEYE SCH ×5 (02:00→23:19)
[2021-01-12] MEDS: ipratropium/albuterol 3ml nebule NEB SCH ×4 (02:07→20:56)
[2021-01-12 03:13] LABS: D-DIMER 19.02 MG/L FEU (0-0.50)
[2021-01-12 03:14] LABS: BASOPHILS % (AUTO) 0.2 % (0-1); EOSINOPHILS % (AUTO) 0.1 % (0-6); HEMATOCRIT 39.4 % (42.0-52.0); HEMOGLOBIN 12.8 g/dl (14.0-17.9); LYMPHOCYTES # (AUTO) 0.5 X10'3 (1.1-4.8); LYMPHOCYTES % (AUTO) 2.3 % (21-51); MEAN CORPUSCULAR HEMOGLOBIN 28.8 PG (27.0-31.0); MEAN CORPUSCULAR HGB CONC 32.6 g/dL (33.0-36.5); MEAN CORPUSCULAR VOLUME 88.5 FL (78-98); MEAN PLATELET VOLUME 8.9 FL (7.4-10.4); MONOCYTES % (AUTO) 4.1 % (2-12); NEUTROPHILS % (AUTO) 93.3 % (42-75); PLATELET COUNT 350 X10'3 (140-440); RED BLOOD COUNT 4.46 X10'6 (4.70-6.10); RED CELL DISTRIBUTION WIDTH 15.8 % (11.5-14.5); WHITE BLOOD COUNT 23.5 X10'3 (4.5-11.0)
[2021-01-12 03:16] LABS: ALANINE AMINOTRANSFERASE 232 U/L (12-78); ALBUMIN 1.9 G/DL (3.4-5.0); ALBUMIN/GLOBULIN RATIO 0.5 (1.1-1.5); ALKALINE PHOSPHATASE 68 IU/L (46-116); ANION GAP 7 (8-16); ASPARTATE AMINO TRANSFERASE 105 U/L (10-37); BLOOD UREA NITROGEN 73 MG/DL (7-18); BUN/CREATININE RATIO 46.5 (5.4-32.0); C-REACTIVE PROTEIN 1.09 MG/DL (0.0-0.5); CALCIUM 8.9 MG/DL (8.5-10.1); CHLORIDE 111 MMOL/L (99-107); CREATININE 1.57 MG/DL (0.60-1.10); GLUCOSE 124 MG/DL (70-104); MAGNESIUM 2.1 MG/DL (1.5-2.4); PHOSPHORUS 4.7 MG/DL (2.3-4.5); POTASSIUM 4.8 MMOL/L (3.5-5.1); SODIUM 146 MMOL/L (135-145); TOTAL CARBON DIOXIDE 28.5 MMOL/L (24-32); TOTAL PROTEIN 5.8 G/DL (6.4-8.2); TRIGLYCERIDES 146 MG/DL (20-135); eGFR 46 ML/MIN
[2021-01-12] MEDS: dextrose 5%-water 1,000 ML IV SCH (03:22)
[2021-01-12] MEDS: dexmedetomidine/D5W 100mL 100 ML IV SCH (03:27)
[2021-01-12 03:43] LABS: TOTAL CELLS COUNTED 100
[2021-01-12 03:45] LABS: LARGE PLATELETS FEW; PLATELET ESTIMATE NORMAL
[2021-01-12] MEDS: dexamethasone inj 4 MG in dextrose 5%-water 100 ML IV SCH ×2 (09:43→20:35)
[2021-01-12] MEDS: PATIROMER CALCIUM SORBITEX 8.4 GM POWD.PACK PO SCH (09:44)
[2021-01-12] MEDS: famotidine/PF 10 mg/ml inj IV SCH ×2 (09:45→20:34)
[2021-01-12] MEDS: lactobacillus rhamnosus 10,000 MMU CELLS/CAPSULE OGT SCH ×2 (09:45→20:35)
[2021-01-12] MEDS: docusate sodium 100mg/10ml UD cup OGT SCH ×2 (09:45→20:35)
[2021-01-12] MEDS: BARICITINIB 2 MG TABLET PO SCH (09:58)
[2021-01-12] MEDS: CefTRIAXone 2gm/D5W 50ml BAG 50 ML IV SCH (11:30)
[2021-01-12] MEDS: vancomycin/NS 1 GM ADD-VANTAGE 250 ML IV SCH (14:13)
[2021-01-12] MEDS: sennosides/docusate sodium tablet PO SCH (20:34)
[2021-01-12] MEDS: insulin glargine (Lantus) pen - multi-dose SQ SCH (20:45)
[2021-01-13] VITALS (23 sets, daily range): BP systolic 118–150; BP diastolic 56–79
[2021-01-13] MEDS: vancomycin/NS 1 GM ADD-VANTAGE 250 ML IV SCH ×2 (02:36→14:25)
[2021-01-13] MEDS: dextrose 5%-water 1,000 ML IV SCH ×2 (02:38→15:32)
[2021-01-13 03:43] LABS: BASOPHILS # (AUTO) 0.1 X10'3 (0-0.2); BASOPHILS % (AUTO) 0.4 % (0-1); EOSINOPHILS % (AUTO) 0 % (0-6); HEMATOCRIT 37.2 % (42.0-52.0); HEMOGLOBIN 12.1 g/dl (14.0-17.9); LYMPHOCYTES # (AUTO) 0.5 X10'3 (1.1-4.8); LYMPHOCYTES % (AUTO) 1.7 % (21-51); MEAN CORPUSCULAR HEMOGLOBIN 28.7 PG (27.0-31.0); MEAN CORPUSCULAR HGB CONC 32.5 g/dL (33.0-36.5); MEAN CORPUSCULAR VOLUME 88.1 FL (78-98); MEAN PLATELET VOLUME 8.6 FL (7.4-10.4); MONOCYTES # (AUTO) 0.9 X10'3 (0-0.9); MONOCYTES % (AUTO) 3.4 % (2-12); NEUTROPHILS # (AUTO) 24.3 X10'3 (1.8-7.7); NEUTROPHILS % (AUTO) 94.5 % (42-75); PLATELET COUNT 367 X10'3 (140-440); RED BLOOD COUNT 4.23 X10'6 (4.70-6.10); RED CELL DISTRIBUTION WIDTH 15.7 % (11.5-14.5)
[2021-01-13 03:45] LABS: WHITE BLOOD COUNT 25.8 X10'3 (4.5-11.0)
[2021-01-13] MEDS: ipratropium/albuterol 3ml nebule NEB SCH ×4 (03:51→20:05)
[2021-01-13 03:52] LABS: ALANINE AMINOTRANSFERASE 246 U/L (12-78); ALBUMIN 1.9 G/DL (3.4-5.0); ALBUMIN/GLOBULIN RATIO 0.5 (1.1-1.5); ALKALINE PHOSPHATASE 88 IU/L (46-116); ANION GAP 7 (8-16); ASPARTATE AMINO TRANSFERASE 135 U/L (10-37); BILIRUBIN,TOTAL 1.1 MG/DL (0.1-1.0); BLOOD UREA NITROGEN 61 MG/DL (7-18); BUN/CREATININE RATIO 40.4 (5.4-32.0); C-REACTIVE PROTEIN 6.48 MG/DL (0.0-0.5); CALCIUM 8.7 MG/DL (8.5-10.1); CHLORIDE 113 MMOL/L (99-107); CREATININE 1.51 MG/DL (0.60-1.10); GLUCOSE 141 MG/DL (70-104); MAGNESIUM 2.2 MG/DL (1.5-2.4); PHOSPHORUS 4.8 MG/DL (2.3-4.5); SODIUM 147 MMOL/L (135-145); TOTAL CARBON DIOXIDE 27.1 MMOL/L (24-32); TOTAL PROTEIN 5.8 G/DL (6.4-8.2); eGFR 48 ML/MIN
[2021-01-13 04:38] LABS: D-DIMER 7.39 MG/L FEU (0-0.50)
[2021-01-13 04:42] LABS: TOTAL CELLS COUNTED 100
[2021-01-13 04:43] LABS: ANISOCYTOSIS 1+; PLATELET ESTIMATE NORMAL
--- NOTE | 2021-01-13 07:00 | NUR ---
Patient in room CICU 2007. I have received report from Charge Nurse, Shyanne YOST and had the opportunity to ask questions and assume patient care.
[2021-01-13] MEDS: famotidine/PF 10 mg/ml inj IV SCH (08:13)
[2021-01-13] MEDS: BARICITINIB 2 MG TABLET PO SCH (08:14)
[2021-01-13] MEDS: PATIROMER CALCIUM SORBITEX 8.4 GM POWD.PACK PO SCH (08:14)
[2021-01-13] MEDS: lactobacillus rhamnosus 10,000 MMU CELLS/CAPSULE OGT SCH ×2 (08:14→20:09)
[2021-01-13] MEDS: docusate sodium 100mg/10ml UD cup OGT SCH ×2 (08:14→20:09)
[2021-01-13] MEDS: mineral oil/petrolatum ophthal oint EACHEYE SCH (08:14)
[2021-01-13] MEDS: dexmedetomidine/D5W 100mL 100 ML IV SCH (08:50)
[2021-01-13] MEDS: dexamethasone inj 4 MG in dextrose 5%-water 100 ML IV SCH (09:29)
[2021-01-13] MEDS: CefTRIAXone 2gm/D5W 50ml BAG 50 ML IV SCH (11:25)
[2021-01-13] MEDS: acetaminophen 325mg/10.15ml oral unit dose solution PO PRN ×2 (11:34→20:19)
[2021-01-13] MEDS: heparin 10,000 units/1 ML INJ IV PRN (12:44)
[2021-01-13] MEDS ORDERED: VANCOMYCIN LEVEL IV ONE (13:30)
[2021-01-13] MEDS: heparin 25,000 UNIT/250ml bag 250 ML IV SCH ×2 (14:10→18:40)
--- NOTE | 2021-01-13 18:12 | NUR ---
Problems reprioritized. Patient report given, questions answered & plan of care reviewed with Lien RN.
[2021-01-13] MEDS: sennosides/docusate sodium tablet PO SCH (20:09)
[2021-01-13] MEDS: insulin glargine (Lantus) pen - multi-dose SQ SCH (20:40)
[2021-01-14] VITALS (15 sets, daily range): BP systolic 126–146; BP diastolic 62–76
[2021-01-14] MEDS: ipratropium/albuterol 3ml nebule NEB SCH ×4 (03:14→21:00)
[2021-01-14 03:37] LABS: BASOPHILS # (AUTO) 0.1 X10'3 (0-0.2); BASOPHILS % (AUTO) 0.5 % (0-1); EOSINOPHILS # (AUTO) 0.1 X10'3 (0-0.9); EOSINOPHILS % (AUTO) 0.6 % (0-6); HEMATOCRIT 33.1 % (42.0-52.0); HEMOGLOBIN 10.9 g/dl (14.0-17.9); LYMPHOCYTES # (AUTO) 1.2 X10'3 (1.1-4.8); LYMPHOCYTES % (AUTO) 4.9 % (21-51); MEAN CORPUSCULAR HEMOGLOBIN 28.9 PG (27.0-31.0); MEAN CORPUSCULAR HGB CONC 32.8 g/dL (33.0-36.5); MEAN CORPUSCULAR VOLUME 88.1 FL (78-98); MEAN PLATELET VOLUME 8.3 FL (7.4-10.4); MONOCYTES # (AUTO) 1.3 X10'3 (0-0.9); MONOCYTES % (AUTO) 5.4 % (2-12); NEUTROPHILS # (AUTO) 20.8 X10'3 (1.8-7.7); NEUTROPHILS % (AUTO) 88.6 % (42-75); PLATELET COUNT 349 X10'3 (140-440); RED BLOOD COUNT 3.76 X10'6 (4.70-6.10); RED CELL DISTRIBUTION WIDTH 15.6 % (11.5-14.5); WHITE BLOOD COUNT 23.5 X10'3 (4.5-11.0)
[2021-01-14 03:47] LABS: ALANINE AMINOTRANSFERASE 212 U/L (12-78); ALBUMIN 1.7 G/DL (3.4-5.0); ALBUMIN/GLOBULIN RATIO 0.5 (1.1-1.5); ALKALINE PHOSPHATASE 75 IU/L (46-116); ANION GAP 6 (8-16); ASPARTATE AMINO TRANSFERASE 129 U/L (10-37); BILIRUBIN,TOTAL 0.9 MG/DL (0.1-1.0); BLOOD UREA NITROGEN 45 MG/DL (7-18); BUN/CREATININE RATIO 32.8 (5.4-32.0); C-REACTIVE PROTEIN 4.11 MG/DL (0.0-0.5); CALCIUM 7.9 MG/DL (8.5-10.1); CHLORIDE 107 MMOL/L (99-107); CREATININE 1.37 MG/DL (0.60-1.10); GLUCOSE 95 MG/DL (70-104); MAGNESIUM 1.9 MG/DL (1.5-2.4); PHOSPHORUS 3.2 MG/DL (2.3-4.5); POTASSIUM 4.1 MMOL/L (3.5-5.1); SODIUM 139 MMOL/L (135-145); TOTAL CARBON DIOXIDE 25.7 MMOL/L (24-32); TOTAL PROTEIN 5.4 G/DL (6.4-8.2); eGFR 54 ML/MIN
[2021-01-14 03:49] LABS: D-DIMER 10.01 MG/L FEU (0-0.50)
--- NOTE | 2021-01-14 04:34 | NUR ---
Patient alert and responsive, oriented x 4. Patient during the shift denied respiratory distress, though 5/10 pain to left abdomen medicated with Tylenol PO PRN. Patient maintained on Heparin drip; presently at 1800 units/kg/hr, at 18mls per hour. PTT drawn during the night. At 9pm, PTT was 67, and at 3am, PTT was 50; both within normal rates, and no increase or decrease in infusion rates required. Patient maintained on 02 at 2L nasal canula. PICC line to right upper arm clean, dry, and patent. Patient ate 75% of dinner, and output was recorded q hourly. Dodson still intact, draining clear yellow urine. Patient had one bowl movement during the night. Kept clean and dry, and needs attended to.
[2021-01-14] MEDS: dextrose 5%-water 1,000 ML IV SCH ×2 (05:11→18:44)
[2021-01-14] MEDS: acetaminophen 325mg/10.15ml oral unit dose solution PO PRN ×2 (05:50→22:53)
[2021-01-14] MEDS ORDERED: dexamethasone inj 6 MG in dextrose 5%-water 100 ML IV SCH (08:00)
[2021-01-14] MEDS: docusate sodium 100mg/10ml UD cup OGT SCH ×2 (10:01→20:25)
[2021-01-14] MEDS: BARICITINIB 2 MG TABLET PO SCH (10:01)
[2021-01-14] MEDS: lactobacillus rhamnosus 10,000 MMU CELLS/CAPSULE OGT SCH ×2 (10:01→20:25)
--- NOTE | 2021-01-14 11:30 | NUR ---
RECEIVED REPORT FROM RITIKA MAYER. PT ARRIVED ON UNIT 11:00. ASSUMED CARE OF PT. PT RESTING COMFORTABLY. SAFETY MEASURES IN PLACE WILL CONTINUE TO MONITOR.
--- NOTE | 2021-01-14 12:43 | NUR ---
Reassessment: Patient's diet advanced to mechanical soft chopped food with thin liquids at f/u BSS this morning. Pt documented with 0% PO intake at breakfast this morning though previously eating fairly well with average 50-75% PO intake. Noted new order in place for pt to receive adaptive-bryan and sippy cup starting lunch today. Pt receiving D5 at 75 mL/hr providing 306 kcal/day. LBM 01/13, receiving routine bowel care. Will continue to follow and make recommendations as appropriate pending additional trends in PO intake. Recommendations: 1) Continue SB6 diet with thin liquids per ST recs; sippy cup and adaptive-bryan per EMR 2) Monitor electrolytes and need for renal diet 3) Monitor need for ONS pending further trends in PO intake 4) Routine bowel care 5) Weekly scaled weights Addendum: 01/14/21 at [address] Amended: Links added.
--- NOTE | 2021-01-14 15:59 | NUR ---
SVN still scheduled Q6. RT has been giving while he was in a single isolation room with a HEPA filter, however now he has been moved up to 4th floor. Per protocol, no svn without filters can be given if pt is still in COVID-19 isolation.
--- NOTE | 2021-01-14 16:16 | NUR ---
PAGE SENT PAGER ID: [phone] MESSAGE: [id number], ANGELA NAJERA, PT APPEARS TO BE ON HEPARIN D/T HIGH D-DIMER(>35, CURRENTLY AT 10.01). PT COMPLAINS OF BACK PAIN - CRAMPING. REPORTS NORCO "MAKES ME ITCH", MAY WE TRY BACLOFEN? THANK YOU. DIONE [id number]
[2021-01-14 16:17] LABS: HEMATOCRIT 33.5 % (42.0-52.0); MEAN CORPUSCULAR HEMOGLOBIN 28.8 PG (27.0-31.0); MEAN CORPUSCULAR HGB CONC 32.9 g/dL (33.0-36.5); MEAN CORPUSCULAR VOLUME 87.6 FL (78-98); MEAN PLATELET VOLUME 8.6 FL (7.4-10.4); PLATELET COUNT 370 X10'3 (140-440); RED BLOOD COUNT 3.82 X10'6 (4.70-6.10); RED CELL DISTRIBUTION WIDTH 15.8 % (11.5-14.5); WHITE BLOOD COUNT 22.4 X10'3 (4.5-11.0)
[2021-01-14] MEDS: heparin 10,000 units/1 ML INJ IV PRN (16:47)
--- NOTE | 2021-01-14 17:04 | NUR ---
PAGE SEND PAGER ID: [phone] MESSAGE: [id number], ANGELA NAJERA, PTT 34, WHICH REQUIRES A HEPARIN BOLUS (7,500) AND INCREASE OF HEPARIN GTT(2200). PT PASSED STOOL WITH LYN BLOOD AND NICKEL SIZED CLOT. I'M NOTIFYING YOU BEFORE GIVING BOLUS AND INCREASING GTT. THANKS DIONE [id number]
--- NOTE | 2021-01-14 19:05 | NUR ---
Problems reprioritized. Patient report given, questions answered & plan of care reviewed with RITIKA MITCHELL.
[2021-01-14] MEDS ORDERED: iohexol 350MG/ML 100ml bottle IV ONE (19:29)
[2021-01-14] MEDS: sennosides/docusate sodium tablet PO SCH (20:25)
--- NOTE | 2021-01-14 20:31 | NUR ---
I paged for vascular study to rule out blood clots in arms and legs per Dr. Cota's order. I then called Adisson the lawn care technician and she said if it is ordered urgent then it will be done first thing in the am at 0600. They only do stat orders at night.
[2021-01-14] MEDS: insulin glargine (Lantus) pen - multi-dose SQ SCH (21:00)
[2021-01-14] MEDS: erythromycin ophthalmic ointment 1gm tube EACHEYE SCH (21:38)
[2021-01-15 02:00] VITALS: BP 135/67
[2021-01-15 02:54] LABS: BASOPHILS # (AUTO) 0.1 X10'3 (0-0.2); BASOPHILS % (AUTO) 0.4 % (0-1); EOSINOPHILS # (AUTO) 0.1 X10'3 (0-0.9); EOSINOPHILS % (AUTO) 0.3 % (0-6); HEMATOCRIT 33.6 % (42.0-52.0); HEMOGLOBIN 11.1 g/dl (14.0-17.9); LYMPHOCYTES # (AUTO) 1.2 X10'3 (1.1-4.8); LYMPHOCYTES % (AUTO) 5.6 % (21-51); MEAN CORPUSCULAR HEMOGLOBIN 28.9 PG (27.0-31.0); MEAN CORPUSCULAR VOLUME 87.6 FL (78-98); MEAN PLATELET VOLUME 8.6 FL (7.4-10.4); MONOCYTES # (AUTO) 1.2 X10'3 (0-0.9); MONOCYTES % (AUTO) 5.2 % (2-12); NEUTROPHILS # (AUTO) 19.8 X10'3 (1.8-7.7); NEUTROPHILS % (AUTO) 88.5 % (42-75); PLATELET COUNT 344 X10'3 (140-440); RED BLOOD COUNT 3.83 X10'6 (4.70-6.10); RED CELL DISTRIBUTION WIDTH 15.6 % (11.5-14.5); WHITE BLOOD COUNT 22.4 X10'3 (4.5-11.0)
[2021-01-15 03:00] LABS: ALANINE AMINOTRANSFERASE 216 U/L (12-78); ALBUMIN 1.9 G/DL (3.4-5.0); ALBUMIN/GLOBULIN RATIO 0.5 (1.1-1.5); ALKALINE PHOSPHATASE 95 IU/L (46-116); ANION GAP 3 (8-16); ASPARTATE AMINO TRANSFERASE 150 U/L (10-37); BILIRUBIN,TOTAL 0.9 MG/DL (0.1-1.0); BLOOD UREA NITROGEN 36 MG/DL (7-18); BUN/CREATININE RATIO 28.3 (5.4-32.0); C-REACTIVE PROTEIN 4.48 MG/DL (0.0-0.5); CHLORIDE 102 MMOL/L (99-107); CREATININE 1.27 MG/DL (0.60-1.10); GLUCOSE 95 MG/DL (70-104); LACTATE DEHYDROGENASE 785 U/L (85-227); MAGNESIUM 1.9 MG/DL (1.5-2.4); PHOSPHORUS 3.2 MG/DL (2.3-4.5); SODIUM 133 MMOL/L (135-145); TOTAL CARBON DIOXIDE 27.6 MMOL/L (24-32); TOTAL PROTEIN 5.7 G/DL (6.4-8.2); eGFR 58 ML/MIN
[2021-01-15] MEDS: ipratropium/albuterol 3ml nebule NEB SCH ×3 (03:00→19:33)
[2021-01-15 03:03] LABS: D-DIMER 7.89 MG/L FEU (0-0.50)
[2021-01-15 03:57] LABS: PLATELET ESTIMATE NORMAL; TOTAL CELLS COUNTED 100
[2021-01-15 05:00] VITALS: BP 161/80
[2021-01-15] MEDS: dextrose 5%-water 1,000 ML IV SCH (05:31)
[2021-01-15] MEDS: acetaminophen 325mg/10.15ml oral unit dose solution PO PRN ×2 (06:10→14:39)
--- NOTE | 2021-01-15 06:40 | NUR ---
Problems reprioritized. Patient report given, questions answered & plan of care reviewed with RITIKA Sung.
[2021-01-15] MEDS ORDERED: heparin, porcine 5000 units/ml vial SQ SCH (08:00)
[2021-01-15] MEDS: docusate sodium 100mg/10ml UD cup OGT SCH ×3 (08:07→19:51)
[2021-01-15] MEDS: lactobacillus rhamnosus 10,000 MMU CELLS/CAPSULE OGT SCH ×2 (08:08→19:37)
[2021-01-15] MEDS: erythromycin ophthalmic ointment 1gm tube EACHEYE SCH ×2 (08:11→13:09)
[2021-01-15] MEDS: lactose-reduced food (Ensure Enlive) - 237ml bottle PO SCH ×3 (08:16→18:50)
[2021-01-15] MEDS: dexamethasone inj 5 MG in dextrose 5%-water 100 ML IV SCH (08:16)
--- NOTE | 2021-01-15 09:16 | NUR ---
Waiting on report from vascular [facility] states indication of dvt on L lower extremity and superficial thrombus in one of the upper extremities. Dr Cota notified of pending Imaging results. Waiting for final report to confirm and will re-page Dr Cota from potential orders.
[2021-01-15 10:01] VITALS: BP 121/73
[2021-01-15] MEDS ORDERED: heparin 10,000 units/1 ML INJ IV ONE (12:15)
[2021-01-15] MEDS: heparin 25,000 UNIT/250ml bag 250 ML IV SCH ×8 (12:24→13:10)
[2021-01-15] MEDS: dextrose 5%-normal saline 1,000 ML IV SCH (12:42)
--- NOTE | 2021-01-15 13:01 | NUR ---
PER PHARMACIST, START HEPARIN GTT AT 1700 UNITS PER HR
[2021-01-15 13:13] LABS: HEMATOCRIT 35.3 % (42.0-52.0); HEMOGLOBIN 11.6 g/dl (14.0-17.9); MEAN CORPUSCULAR HEMOGLOBIN 28.7 PG (27.0-31.0); MEAN CORPUSCULAR HGB CONC 32.8 g/dL (33.0-36.5); MEAN CORPUSCULAR VOLUME 87.4 FL (78-98); MEAN PLATELET VOLUME 7.9 FL (7.4-10.4); PLATELET COUNT 347 X10'3 (140-440); RED BLOOD COUNT 4.04 X10'6 (4.70-6.10); RED CELL DISTRIBUTION WIDTH 15.5 % (11.5-14.5)
[2021-01-15 13:15] LABS: WHITE BLOOD COUNT 25.2 X10'3 (4.5-11.0)
--- NOTE | 2021-01-15 13:51 | NUR ---
lab raul new wbc with h&h, wbc is 25.2, which is up slightly from AM. Dr Cota notified. It has been in the 25 range recently as well.
[2021-01-15 14:00] VITALS: BP 120/62
[2021-01-15 16:08] LABS: HBSAG SCREEN Negative (Negative); HEP A AB, IGM Negative (Negative); HEPATITIS C ANTIBODY <0.1 s/co ratio (0.0-0.9)
[2021-01-15 18:00] VITALS: BP 135/74
--- NOTE | 2021-01-15 18:30 | NUR ---
PT REPORT GIVEN TO CARI YOST, ALL QUESTIONS ANSWERED. PT SLEEPING ON INTRODUCTION BUT WOKE EASILY TO SAY HELLO TO VANNA YOST. CARI WILL GET 1900 PTT AND CONTINUE HEPARIN GTT PROTOCOL ORDERED.
--- NOTE | 2021-01-15 19:34 | NUR ---
SVN not given patient is still covid 19 + TILL 01/21 AGAINST POLICY TO GIVE svn TX
[2021-01-15] MEDS: sennosides/docusate sodium tablet PO SCH (19:37)
[2021-01-15] MEDS: insulin glargine (Lantus) pen - multi-dose SQ SCH (19:38)
[2021-01-15] MEDS: HYDROcodone/acetaminophen 5mg/325mg tablet PO PRN (20:29)
[2021-01-15 22:00] VITALS: BP 165/82
[2021-01-16 02:00] VITALS: BP 152/77
[2021-01-16] MEDS: heparin 25,000 UNIT/250ml bag 250 ML IV SCH ×2 (02:50→20:09)
[2021-01-16] MEDS: acetaminophen 325mg/10.15ml oral unit dose solution PO PRN ×3 (02:54→14:53)
[2021-01-16] MEDS: ipratropium/albuterol 3ml nebule NEB SCH (03:00)
[2021-01-16 03:20] LABS: D-DIMER 8.29 MG/L FEU (0-0.50)
[2021-01-16 06:00] VITALS: BP 126/68
--- NOTE | 2021-01-16 06:17 | NUR ---
Problems reprioritized. Patient report given, questions answered & plan of care reviewed with RITIKA Pretty.
--- NOTE | 2021-01-16 06:20 | NUR ---
Patient in room ORTHO 4012B. I have received report from RITIKA ALCALA and had the opportunity to ask questions and assume patient care.
[2021-01-16] MEDS: dexamethasone inj 5 MG in dextrose 5%-water 100 ML IV SCH (07:32)
[2021-01-16] MEDS: lactobacillus rhamnosus 10,000 MMU CELLS/CAPSULE OGT SCH ×2 (07:32→20:05)
[2021-01-16] MEDS: dextrose 5%-normal saline 1,000 ML IV SCH (07:32)
[2021-01-16] MEDS: docusate sodium 100mg/10ml UD cup OGT SCH ×2 (07:34→20:00)
[2021-01-16] MEDS: lactose-reduced food (Ensure Enlive) - 237ml bottle PO SCH ×3 (08:46→18:14)
[2021-01-16 10:00] VITALS: BP 120/75
[2021-01-16 10:22] LABS: BASOPHILS % (AUTO) 0.1 % (0-1); EOSINOPHILS # (AUTO) 0.1 X10'3 (0-0.9); EOSINOPHILS % (AUTO) 0.5 % (0-6); HEMATOCRIT 31.1 % (42.0-52.0); HEMOGLOBIN 10.3 g/dl (14.0-17.9); LYMPHOCYTES # (AUTO) 0.7 X10'3 (1.1-4.8); LYMPHOCYTES % (AUTO) 3.1 % (21-51); MEAN CORPUSCULAR HEMOGLOBIN 28.7 PG (27.0-31.0); MEAN CORPUSCULAR HGB CONC 32.9 g/dL (33.0-36.5); MEAN CORPUSCULAR VOLUME 87.2 FL (78-98); MEAN PLATELET VOLUME 8.3 FL (7.4-10.4); MONOCYTES # (AUTO) 1.2 X10'3 (0-0.9); MONOCYTES % (AUTO) 5.2 % (2-12); NEUTROPHILS # (AUTO) 20.2 X10'3 (1.8-7.7); NEUTROPHILS % (AUTO) 91.1 % (42-75); PLATELET COUNT 322 X10'3 (140-440); RED BLOOD COUNT 3.57 X10'6 (4.70-6.10); RED CELL DISTRIBUTION WIDTH 15.5 % (11.5-14.5); WHITE BLOOD COUNT 22.2 X10'3 (4.5-11.0)
[2021-01-16 11:01] LABS: ALANINE AMINOTRANSFERASE 207 U/L (12-78); ALBUMIN 1.9 G/DL (3.4-5.0); ALBUMIN/GLOBULIN RATIO 0.5 (1.1-1.5); ALKALINE PHOSPHATASE 98 IU/L (46-116); ANION GAP 9 (8-16); ASPARTATE AMINO TRANSFERASE 86 U/L (10-37); BILIRUBIN,TOTAL 0.5 MG/DL (0.1-1.0); BLOOD UREA NITROGEN 26 MG/DL (7-18); BUN/CREATININE RATIO 24.3 (5.4-32.0); C-REACTIVE PROTEIN 4.44 MG/DL (0.0-0.5); CALCIUM 7.9 MG/DL (8.5-10.1); CHLORIDE 102 MMOL/L (99-107); CREATININE 1.07 MG/DL (0.60-1.10); GLUCOSE 137 MG/DL (70-104); LACTATE DEHYDROGENASE 654 U/L (85-227); MAGNESIUM 1.7 MG/DL (1.5-2.4); PHOSPHORUS 3.1 MG/DL (2.3-4.5); POTASSIUM 3.8 MMOL/L (3.5-5.1); SODIUM 135 MMOL/L (135-145); TOTAL CARBON DIOXIDE 23.8 MMOL/L (24-32); TOTAL PROTEIN 5.8 G/DL (6.4-8.2); eGFR 71 ML/MIN
[2021-01-16 11:22] LABS: TOTAL CELLS COUNTED 100
[2021-01-16 11:24] LABS: ELLIPTOCYTES FEW; PLATELET ESTIMATE NORMAL; POLYCHROMASIA FEW; SCHISTOCYTES FEW; STOMATOCYTES FEW; TEAR DROP CELLS FEW
[2021-01-16 14:00] VITALS: BP 127/69
[2021-01-16] MEDS: heparin 10,000 units/1 ML INJ IV PRN (17:54)
[2021-01-16 18:00] VITALS: BP 119/70
--- NOTE | 2021-01-16 18:48 | NUR ---
Problems reprioritized. Patient report given, questions answered & plan of care reviewed with RITIKA Belle.
[2021-01-16] MEDS: insulin glargine (Lantus) pen - multi-dose SQ SCH (20:01)
[2021-01-16] MEDS: sennosides/docusate sodium tablet PO SCH (20:01)
[2021-01-16 22:00] VITALS: BP 128/70
[2021-01-16] MEDS: HYDROcodone/acetaminophen 5mg/325mg tablet PO PRN (22:38)
[2021-01-17 02:00] VITALS: BP 130/69
[2021-01-17] MEDS: dextrose 5%-normal saline 1,000 ML IV SCH ×2 (02:38→22:50)
[2021-01-17 06:00] VITALS: BP 117/57
--- NOTE | 2021-01-17 06:24 | NUR ---
Problems reprioritized. Patient report given, questions answered & plan of care reviewed with RITIKA Pretty.
--- NOTE | 2021-01-17 06:26 | NUR ---
Patient in room ORTHO 4012B. I have received report from RITIKA ALCALA and had the opportunity to ask questions and assume patient care.
[2021-01-17] MEDS: heparin 25,000 UNIT/250ml bag 250 ML IV SCH ×2 (06:45→12:02)
[2021-01-17] MEDS: lactobacillus rhamnosus 10,000 MMU CELLS/CAPSULE OGT SCH ×2 (07:24→20:41)
[2021-01-17] MEDS: dexamethasone inj 5 MG in dextrose 5%-water 100 ML IV SCH (07:24)
[2021-01-17] MEDS: HYDROcodone/acetaminophen 5mg/325mg tablet PO PRN ×3 (07:25→22:47)
[2021-01-17] MEDS: docusate sodium 100mg/10ml UD cup OGT SCH ×2 (07:25→20:41)
[2021-01-17 08:05] LABS: BASOPHILS # (AUTO) 0.1 X10'3 (0-0.2); BASOPHILS % (AUTO) 0.3 % (0-1); EOSINOPHILS # (AUTO) 0.1 X10'3 (0-0.9); EOSINOPHILS % (AUTO) 0.5 % (0-6); HEMATOCRIT 32.4 % (42.0-52.0); HEMOGLOBIN 10.6 g/dl (14.0-17.9); LYMPHOCYTES # (AUTO) 1.1 X10'3 (1.1-4.8); LYMPHOCYTES % (AUTO) 5.9 % (21-51); MEAN CORPUSCULAR HEMOGLOBIN 28.6 PG (27.0-31.0); MEAN CORPUSCULAR HGB CONC 32.7 g/dL (33.0-36.5); MEAN CORPUSCULAR VOLUME 87.4 FL (78-98); MEAN PLATELET VOLUME 8.1 FL (7.4-10.4); MONOCYTES # (AUTO) 1.2 X10'3 (0-0.9); MONOCYTES % (AUTO) 6.2 % (2-12); NEUTROPHILS % (AUTO) 87.1 % (42-75); PLATELET COUNT 332 X10'3 (140-440); RED CELL DISTRIBUTION WIDTH 15.9 % (11.5-14.5); WHITE BLOOD COUNT 19.5 X10'3 (4.5-11.0)
[2021-01-17 08:12] LABS: ALANINE AMINOTRANSFERASE 173 U/L (12-78); ALBUMIN 1.7 G/DL (3.4-5.0); ALBUMIN/GLOBULIN RATIO 0.4 (1.1-1.5); ALKALINE PHOSPHATASE 94 IU/L (46-116); ANION GAP 9 (8-16); ASPARTATE AMINO TRANSFERASE 56 U/L (10-37); BILIRUBIN,TOTAL 0.5 MG/DL (0.1-1.0); BLOOD UREA NITROGEN 21 MG/DL (7-18); BUN/CREATININE RATIO 22.1 (5.4-32.0); C-REACTIVE PROTEIN 4.89 MG/DL (0.0-0.5); CALCIUM 7.9 MG/DL (8.5-10.1); CHLORIDE 104 MMOL/L (99-107); CREATININE 0.95 MG/DL (0.60-1.10); GLUCOSE 94 MG/DL (70-104); LACTATE DEHYDROGENASE 588 U/L (85-227); MAGNESIUM 1.7 MG/DL (1.5-2.4); PHOSPHORUS 2.2 MG/DL (2.3-4.5); POTASSIUM 3.8 MMOL/L (3.5-5.1); SODIUM 137 MMOL/L (135-145); TOTAL CARBON DIOXIDE 23.8 MMOL/L (24-32); TOTAL PROTEIN 5.8 G/DL (6.4-8.2); eGFR 82 ML/MIN
[2021-01-17] MEDS: lactose-reduced food (Ensure Enlive) - 237ml bottle PO SCH ×3 (08:28→18:45)
[2021-01-17] MEDS: heparin 10,000 units/1 ML INJ IV PRN (08:29)
[2021-01-17 10:00] VITALS: BP 123/76
[2021-01-17 14:00] VITALS: BP 130/69
[2021-01-17 18:00] VITALS: BP 121/62
--- NOTE | 2021-01-17 18:33 | NUR ---
Problems reprioritized. Patient report given, questions answered & plan of care reviewed with RITIKA Hays.
[2021-01-17] MEDS: sennosides/docusate sodium tablet PO SCH (20:42)
[2021-01-17] MEDS: insulin glargine (Lantus) pen - multi-dose SQ SCH (21:00)
[2021-01-17 22:00] VITALS: BP 130/64
[2021-01-18] MEDS: heparin 25,000 UNIT/250ml bag 250 ML IV SCH ×2 (01:01→15:20)
[2021-01-18 02:00] VITALS: BP 110/62
[2021-01-18 02:53] LABS: BASOPHILS % (AUTO) 0.2 % (0-1); EOSINOPHILS # (AUTO) 0.1 X10'3 (0-0.9); EOSINOPHILS % (AUTO) 0.7 % (0-6); HEMATOCRIT 30.6 % (42.0-52.0); HEMOGLOBIN 10.2 g/dl (14.0-17.9); LYMPHOCYTES # (AUTO) 1.4 X10'3 (1.1-4.8); MEAN CORPUSCULAR HGB CONC 33.2 g/dL (33.0-36.5); MEAN CORPUSCULAR VOLUME 87.1 FL (78-98); MEAN PLATELET VOLUME 7.5 FL (7.4-10.4); MONOCYTES % (AUTO) 6.5 % (2-12); NEUTROPHILS # (AUTO) 13.3 X10'3 (1.8-7.7); NEUTROPHILS % (AUTO) 83.6 % (42-75); PLATELET COUNT 290 X10'3 (140-440); RED BLOOD COUNT 3.52 X10'6 (4.70-6.10); RED CELL DISTRIBUTION WIDTH 15.8 % (11.5-14.5); WHITE BLOOD COUNT 15.9 X10'3 (4.5-11.0)
[2021-01-18 03:03] LABS: ALANINE AMINOTRANSFERASE 143 U/L (12-78); ALBUMIN 1.7 G/DL (3.4-5.0); ALBUMIN/GLOBULIN RATIO 0.4 (1.1-1.5); ALKALINE PHOSPHATASE 83 IU/L (46-116); ANION GAP 8 (8-16); ASPARTATE AMINO TRANSFERASE 39 U/L (10-37); BILIRUBIN,TOTAL 0.4 MG/DL (0.1-1.0); BLOOD UREA NITROGEN 19 MG/DL (7-18); BUN/CREATININE RATIO 18.6 (5.4-32.0); C-REACTIVE PROTEIN 5.34 MG/DL (0.0-0.5); CHLORIDE 104 MMOL/L (99-107); CREATININE 1.02 MG/DL (0.60-1.10); GLUCOSE 98 MG/DL (70-104); LACTATE DEHYDROGENASE 425 U/L (85-227); MAGNESIUM 1.8 MG/DL (1.5-2.4); PHOSPHORUS 2.6 MG/DL (2.3-4.5); POTASSIUM 3.8 MMOL/L (3.5-5.1); SODIUM 138 MMOL/L (135-145); TOTAL CARBON DIOXIDE 26.3 MMOL/L (24-32); TOTAL PROTEIN 5.8 G/DL (6.4-8.2); eGFR 75 ML/MIN
[2021-01-18 03:08] LABS: D-DIMER 7.77 MG/L FEU (0-0.50)
[2021-01-18] MEDS: acetaminophen 325mg/10.15ml oral unit dose solution PO PRN (03:11)
[2021-01-18] MEDS: HYDROcodone/acetaminophen 5mg/325mg tablet PO PRN ×2 (04:39→11:41)
[2021-01-18 04:41] LABS: TOTAL CELLS COUNTED 100
[2021-01-18 04:42] LABS: PLATELET ESTIMATE NORMAL
[2021-01-18 04:43] LABS: ELLIPTOCYTES FEW; SCHISTOCYTES FEW
[2021-01-18 06:00] VITALS: BP 111/52
--- NOTE | 2021-01-18 06:31 | NUR ---
Patient in room ORTHO 4012B. I have received report from RITIKA Esparza and had the opportunity to ask questions and assume patient care. Addendum: 01/18/21 at 0631 by Maria De Jesus Etienne RN Patient in room ORTHO 4012B. I have received report from RITIKA Hays and had the opportunity to ask questions and assume patient care.
[2021-01-18] MEDS ORDERED: dexamethasone inj 4 MG in dextrose 5%-water 100 ML IV SCH (08:00)
[2021-01-18] MEDS: docusate sodium 100mg/10ml UD cup OGT SCH ×2 (08:00→20:08)
[2021-01-18] MEDS: lactobacillus rhamnosus 10,000 MMU CELLS/CAPSULE OGT SCH ×2 (08:05→20:08)
[2021-01-18] MEDS: lactose-reduced food (Ensure Enlive) - 237ml bottle PO SCH ×3 (08:06→18:04)
--- NOTE | 2021-01-18 09:22 | NUR ---
Page Sent PAGER ID: [phone] MESSAGE: Maria De Jesus [phone] Re: Jr Wong [id number] pt is complaining of chest pain, EKG complete and in chart. pt complaining of 10/10 back pain as well, cannot give Randolph yet, can I get an order for something else? Thanks!
[2021-01-18] MEDS ORDERED: INDOCYANINE GREEN 25 MG/10 ML VIAL IV ONE (09:30)
[2021-01-18] MEDS: morphine 2 MG/ML inj. syringe IV PRN ×2 (09:47→19:01)
[2021-01-18 10:00] VITALS: BP 127/68
--- NOTE | 2021-01-18 11:25 | NUR ---
Reassessment: Pt with improving PO intake, previously with mostly 25% PO intake however up to 50-75% PO intake of meals since dinner 01/16. Pt receiving Ensure Enlive TID since 01/15, initially with poor acceptance however with mostly 75% PO intake of ONS since 01/16 dinner. Pt likely meeting estimated nutrient needs at this time with combined PO intake of meals and ONS. LBM 01/16. No further nutrition intervention implemented at this time. Will continue to follow. Recommendations: 1) Continue SB6 diet with thin liquids per ST recs; sippy cup and adaptive-bryan per EMR 2) Monitor electrolytes and need for renal diet 3) Continue Ensure Enlive TIDWM 4) Routine bowel care 5) Weekly scaled weights Addendum: 01/18/21 at [address] Amended: Links added.
[2021-01-18] MEDS: heparin 10,000 units/1 ML INJ IV PRN (15:58)
--- NOTE | 2021-01-18 18:25 | NUR ---
Problems reprioritized. Patient report given, questions answered & plan of care reviewed with RITIKA Lindquist.
[2021-01-18 19:51] VITALS: BP 119/66
[2021-01-18] MEDS: Melatonin 3mg tablet PO SCH (20:08)
[2021-01-18] MEDS: sennosides/docusate sodium tablet PO SCH (20:08)
[2021-01-18] MEDS: dextrose 5%-normal saline 1,000 ML IV SCH (20:14)
[2021-01-18 22:00] VITALS: BP 127/63
[2021-01-19 02:00] VITALS: BP 126/64
[2021-01-19] MEDS: morphine 2 MG/ML inj. syringe IV PRN ×3 (02:39→22:34)
[2021-01-19] MEDS: heparin 25,000 UNIT/250ml bag 250 ML IV SCH ×3 (05:04→19:35)
[2021-01-19 06:00] VITALS: BP 99/52
--- NOTE | 2021-01-19 06:15 | NUR ---
received report from cali tafoya
[2021-01-19 06:36] LABS: D-DIMER 8.97 MG/L FEU (0-0.50)
[2021-01-19 06:44] LABS: C-REACTIVE PROTEIN 6.41 MG/DL (0.0-0.5)
[2021-01-19] MEDS: docusate sodium 100mg/10ml UD cup OGT SCH ×2 (07:32→19:34)
[2021-01-19] MEDS: lactobacillus rhamnosus 10,000 MMU CELLS/CAPSULE OGT SCH ×2 (07:32→19:33)
[2021-01-19] MEDS: HYDROcodone/acetaminophen 5mg/325mg tablet PO PRN ×3 (07:38→19:33)
[2021-01-19] MEDS: lactose-reduced food (Ensure Enlive) - 237ml bottle PO SCH ×3 (07:45→18:25)
[2021-01-19] MEDS ORDERED: WATER IV SCH (08:00)
[2021-01-19] MEDS ORDERED: DEXAMETHASONE IV SCH (08:00)
[2021-01-19] MEDS ORDERED: DEXTROSE 5% IV SCH (08:00)
[2021-01-19 10:00] VITALS: BP 110/71
[2021-01-19] MEDS: heparin 10,000 units/1 ML INJ IV PRN (12:09)
[2021-01-19 15:10] VITALS: BP 129/73
[2021-01-19 18:00] VITALS: BP 99/51
--- NOTE | 2021-01-19 18:26 | NUR ---
gave report to cali reveles
--- NOTE | 2021-01-19 18:29 | NUR ---
Patient in room ORTHO 4012. I have received report from Evette YOST and had the opportunity to ask questions and assume patient care.
[2021-01-19] MEDS: dextrose 5%-normal saline 1,000 ML IV SCH (19:11)
[2021-01-19] MEDS: Melatonin 3mg tablet PO SCH (19:33)
[2021-01-19] MEDS: sennosides/docusate sodium tablet PO SCH (19:34)
[2021-01-19 22:00] VITALS: BP 102/55
[2021-01-20 02:40] VITALS: BP 104/51
[2021-01-20] MEDS: HYDROcodone/acetaminophen 5mg/325mg tablet PO PRN ×2 (02:48→09:23)
[2021-01-20 06:00] VITALS: BP 123/74
--- NOTE | 2021-01-20 06:02 | NUR ---
Problems reprioritized. Patient report given, questions answered & plan of care reviewed with Evette YOST.
--- NOTE | 2021-01-20 06:15 | NUR ---
received report from cali reveles
[2021-01-20] MEDS: lactobacillus rhamnosus 10,000 MMU CELLS/CAPSULE OGT SCH ×2 (07:25→20:59)
[2021-01-20] MEDS: docusate sodium 100mg/10ml UD cup OGT SCH ×2 (07:25→20:00)
[2021-01-20] MEDS: morphine 2 MG/ML inj. syringe IV PRN ×3 (07:38→21:00)
[2021-01-20] MEDS: lactose-reduced food (Ensure Enlive) - 237ml bottle PO SCH ×3 (07:45→18:30)
[2021-01-20] MEDS ORDERED: DEXAMETHASONE IV SCH (08:00)
[2021-01-20] MEDS ORDERED: DEXTROSE 5% IV SCH (08:00)
[2021-01-20] MEDS ORDERED: WATER IV SCH (08:00)
[2021-01-20] MEDS: heparin 25,000 UNIT/250ml bag 250 ML IV SCH ×2 (08:32→20:14)
[2021-01-20 10:38] VITALS: BP 126/78
[2021-01-20] MEDS: dextrose 5%-normal saline 1,000 ML IV SCH (13:01)
[2021-01-20 14:00] VITALS: BP 112/67
[2021-01-20 18:00] VITALS: BP 114/85
--- NOTE | 2021-01-20 18:13 | NUR ---
gave report to cali reveles
--- NOTE | 2021-01-20 18:32 | NUR ---
Patient in room ORTHO 4012. I have received report from Evette YOST and had the opportunity to ask questions and assume patient care.
[2021-01-20] MEDS: sennosides/docusate sodium tablet PO SCH (20:59)
[2021-01-20] MEDS: Melatonin 3mg tablet PO SCH (20:59)
[2021-01-20 22:00] VITALS: BP 117/69
[2021-01-21] MEDS: morphine 2 MG/ML inj. syringe IV PRN ×3 (01:38→11:00)
[2021-01-21 02:00] VITALS: BP 117/74
[2021-01-21 06:00] VITALS: BP 110/68
--- NOTE | 2021-01-21 06:22 | NUR ---
Problems reprioritized. Patient report given, questions answered & plan of care reviewed with Melanie YOST.
--- NOTE | 2021-01-21 06:49 | NUR ---
Patient in room ORTHO 4012. I have received report from Raven YOST and had the opportunity to ask questions and assume patient care.
[2021-01-21] MEDS: lactose-reduced food (Ensure Enlive) - 237ml bottle PO SCH (07:57)
[2021-01-21] MEDS ORDERED: DEXAMETHASONE IV SCH (08:00)
[2021-01-21] MEDS ORDERED: DEXTROSE 5% IV SCH (08:00)
[2021-01-21] MEDS: docusate sodium 100mg/10ml UD cup OGT SCH ×2 (08:00→08:05)
[2021-01-21] MEDS ORDERED: WATER IV SCH (08:00)
[2021-01-21] MEDS: lactobacillus rhamnosus 10,000 MMU CELLS/CAPSULE OGT SCH (08:05)
--- NOTE | 2021-01-21 08:05 | NUR ---
PAGER ID: [phone] MESSAGE: Melanie [phone] - re: Jr Wong. Heparin gtt is almost empty. Pt being discharged this am? Should I order another bag or stop infusion when empty?
[2021-01-21 10:03] VITALS: BP 104/61
[2021-01-21] MEDS: heparin 25,000 UNIT/250ml bag 250 ML IV SCH (10:52)
[2021-01-21] MEDS: HYDROcodone/acetaminophen 5mg/325mg tablet PO PRN (14:00)
--- NOTE | 2021-01-21 14:33 | NUR ---
Pt discharged to [place]. PICC line discontinued, tip intact, pressure dressing applied. Pt tolerated well. Explained all discharge and medication instructions to pt. Pt verbalized understanding.
== END 2021-01-21 14:20 | DRG 130 ==
LOC: CICU 2S 12:49 → UNDOADMIN 12:49 → CICU 2S 23:30 → UNDOADMIN 23:30 → CICU 2S 01-04 03:47 → ORTHO 4S 01-14 11:11
PROVIDERS: ADMIT Internal Medicine Critical Care Medicine; ATTEND Internal Medicine Critical Care Medicine
PROC: 02HV33Z Insertion of Infusion Device into Superior Vena Cava, Percutaneous Approach (ICD-10-PCS; principal; 2021-01-04)
PROC: B548ZZA Ultrasonography of Superior Vena Cava, Guidance (ICD-10-PCS; 2021-01-04)
PROC: XW033E5 Introduction of Remdesivir Anti-infective into Peripheral Vein, Percutaneous Approach, New Technology Group 5 (ICD-10-PCS; 2021-01-04)
PROC: XW0DXM6 Introduction of Baricitinib into Mouth and Pharynx, External Approach, New Technology Group 6 (ICD-10-PCS; 2021-01-04)
PROC: 5A1955Z Respiratory Ventilation, Greater than 96 Consecutive Hours (ICD-10-PCS; 2021-01-04)
PROC: 0BH17EZ Insertion of Endotracheal Airway into Trachea, Via Natural or Artificial Opening (ICD-10-PCS; 2021-01-04)
PROC: B32T1ZZ Computerized Tomography (CT Scan) of Left Pulmonary Artery using Low Osmolar Contrast (ICD-10-PCS; 2021-01-14)
PROC: B3201ZZ Computerized Tomography (CT Scan) of Thoracic Aorta using Low Osmolar Contrast (ICD-10-PCS; 2021-01-14)
PROC: B32S1ZZ Computerized Tomography (CT Scan) of Right Pulmonary Artery using Low Osmolar Contrast (ICD-10-PCS; 2021-01-14)
DX: U07.1 COVID-19 (principal); J12.82 Pneumonia due to coronavirus disease 2019; R57.9 Shock, unspecified; J15.9 Unspecified bacterial pneumonia; E87.0 Hyperosmolality and hypernatremia; K92.2 Gastrointestinal hemorrhage, unspecified; J96.00 Acute respiratory failure, unspecified whether with hypoxia or hypercapnia; I82.462 Acute embolism and thrombosis of left calf muscular vein; N17.9 Acute kidney failure, unspecified; R74.01 Elevation of levels of liver transaminase levels; I82.611 Acute embolism and thrombosis of superficial veins of right upper extremity
CPT/HCPCS: 36415; 36573; 36600; 71045; 71250; 71275; 73501; 76937; 80053; 80074; 80202; 81001; 82272; 82570; 82803; 82948; 83036; 83605; 83615; 83735; 83880; 84100; 84132; 84134; 84145; 84156; 84300; 84443; 84478; 85007; 85018; 85025; 85027; 85379; 85384; 85610; 85730; 86140; 86885; 86900; 86901; 87040; 87070; 87077; 87081; 87186; 87207; 92508; 92616; 93005; 93970; 93975; 94002; 94003; 94640; 94667; 94668; 94760; 94799; 97110; 97116; 97161; 97530; A7015; G0378; J0456; J0696; J1100; J1644; J1650; J1815; J1940; J2250; J2270; J2704; J3010; J3370; J3490; J7030; J7042; J7060; J7070; Q9967

== ENCOUNTER 2021-02-23 08:18 | Day surgery (SDC) | payer MEDICAID ==
[~2021-02-23] VITALS: Ht 182.9 cm; Wt 88.2 kg
[~2021-02-23 08:18] MED LIST: LIDOcaine 1% 30ml preserv. free vial IJ STA; UNABLE TO OBTAIN PO
[2021-02-23] MEDS ORDERED: normal saline 1000ml 1,000 ML IV SCH (08:35)
[2021-02-23 08:45] VITALS: BP 144/85
[2021-02-23] MEDS ORDERED: APIX5TAB3 PO (09:19)
[2021-02-23] MEDS ORDERED: CHOL500050 PO (09:19)
[2021-02-23] MEDS ORDERED: ATOR10TA70 PO (09:19)
[2021-02-23 09:23] LABS: BASOPHILS # (AUTO) 0.1 X10'3 (0-0.2); BASOPHILS % (AUTO) 1.5 % (0-1); EOSINOPHILS # (AUTO) 0.1 X10'3 (0-0.9); EOSINOPHILS % (AUTO) 2.7 % (0-6); HEMATOCRIT 41.5 % (42.0-52.0); HEMOGLOBIN 13.4 g/dl (14.0-17.9); LYMPHOCYTES # (AUTO) 0.9 X10'3 (1.1-4.8); LYMPHOCYTES % (AUTO) 18.9 % (21-51); MEAN CORPUSCULAR HEMOGLOBIN 29.1 PG (27.0-31.0); MEAN CORPUSCULAR HGB CONC 32.2 g/dL (33.0-36.5); MEAN CORPUSCULAR VOLUME 90.4 FL (78-98); MEAN PLATELET VOLUME 6.6 FL (7.4-10.4); MONOCYTES # (AUTO) 0.3 X10'3 (0-0.9); MONOCYTES % (AUTO) 6.3 % (2-12); NEUTROPHILS # (AUTO) 3.2 X10'3 (1.8-7.7); NEUTROPHILS % (AUTO) 70.6 % (42-75); PLATELET COUNT 191 X10'3 (140-440); RED BLOOD COUNT 4.59 X10'6 (4.70-6.10); RED CELL DISTRIBUTION WIDTH 19.8 % (11.5-14.5); WHITE BLOOD COUNT 4.5 X10'3 (4.5-11.0)
[2021-02-23] MEDS ORDERED: midazolam 1 mg/ML 2ml injection ONE (10:23)
[2021-02-23] MEDS ORDERED: fentaNYL/PF 50MCG/1 ML 2ML syringe ONE (10:23)
[2021-02-23] MEDS ORDERED: diphenhydrAMINE 50 mg/ml inj ONE (10:26)
[2021-02-23 10:35] VITALS: BP 141/91
[2021-02-23 10:40] VITALS: BP 133/86
[2021-02-23 10:52] VITALS: BP 130/56
== END 2021-02-23 11:25 | disposition home or self-care (01) ==
LOC: SSTAY O 08:18
PROVIDERS: ATTEND Preventive Medicine Aerospace Medicine
DX: R91.1 Solitary pulmonary nodule (principal)
CPT/HCPCS: 71250; 85025; J1200; J2250; J3010